=== PATIENT | male | born 1930 | race Caucasian/White ===

== ENCOUNTER 2016-10-10 13:55 | Inpatient (IN) ==
--- NOTE | 2016-10-10 14:14 | EKG Report ---
Stationary ECG Study [facility] ER Test Date: 10/10/2016 2:01:17 PM Pat Name: JOSÉ MANUEL ROSS Department: Room: Gender: M [employer]: DANNY : 1930 Requested by: Ezra Aragon Order Number: [id number] Reading MD: ENEIDA AMAYA Intervals [place] Rate: 106 P: 44 KS: 163 QRS: 42 QRSD: 107 T: 123 QT: 323 QTc: 385 Interpretive Statements SINUS TACHYCARDIA WITH FREQUENT VENTRICULAR PREMATURE COMPLEXES IN A BIGEMINAL PATTERN POSSIBLE LEFT ATRIAL ENLARGEMENT MODERATE INTRAVENTRICULAR CONDUCTION DELAY INTERPRETATION BASED ON A DEFAULT AGE OF 40 YEARS Electronically Signed On 10-10-16 21:17:24 HUMAN PERFORMANCE TECHNOLOGIST by ENEIDA AMAYA [email or web address]
[2016-10-10] MEDS ORDERED: ENOXAPARIN 100 MG/ML SYRINGE SUBCUT STA (14:23)
[2016-10-10] MEDS ORDERED: NITROGLYCERIN 2% OINT 1 INCH/GM PACK TOP STA (14:23)
[2016-10-10] MEDS ORDERED: ONDANSETRON 4 MG/2 ML VIAL IV PRN (14:23)
[2016-10-10] MEDS ORDERED: NITROGLYCERIN 2% OINT 1 INCH/GM PACK TOP ONE (14:29)
[2016-10-10] MEDS ORDERED: ENOXAPARIN 120 MG/0.8 ML SYRINGE SUBCUT ONE (14:29)
[2016-10-10] MEDS ORDERED: ASPIRIN 325 MG TABLET ONE (14:30)
[2016-10-10] MEDS: ASPIRIN 325 MG TABLET PO STA ×2 (14:32→14:34)
--- NOTE | 2016-10-10 14:38 | Emergency Department Note ---
Fidencio Franz Gwan, am scribing for, and in the presence of, Ezra Verdin MD 14:15 . Velvet Franz James D, MD, personally performed the services described in this documentation, ascribed by Gayatri Nicolas in my presence, and it is both accurate and complete 436 . Arrival - Arrival Chief Complaint: Shortness of Breath Stated Complaint: Chest Pain ED Nursing Triage Note: Brought in by EMS c/o chest pain and SOB-onset 1200 today. Patient took NTG x's 3 without relief. EMS reports CP was relieved with oxygen. Denies CP at current. Mode of Arrival: Stretcher Limitations: No Limitations Source: Significant other, Old Records Reviewed, RN Notes Reviewed - History of Present Illness HPI Narrative: Pt is a 85 y/o male, brought in by EMS with a hx of NV and HTN, who presents to the ED with a c/o chest pain with an onset 1200 today. His associated sxs have been SOB and that his pain radiates to his back. Patient stated that he took 3 NTG with no relief. CP was relieved with oxygen en route by EMS. Pt has a hx of COPD. He noted that his PCP is Dr. Barkley and that he has a social hx of smokeless tobacco. No other problems/complaints reported in ED. Onset (ago): hour(s) Consistency: constant Severity: moderate Allergies/Adverse Reactions: Allergies Allergy/AdvReac Type Severity Reaction Status Date / Time codeine Allergy Unknown/Unable Verified 10/10/16 14:08 to obtain meperidine [From Demerol] Allergy Unknown/Unable Verified 10/10/16 14:08 to obtain Home Medications: Home Medications Medication Instructions Recorded Confirmed Type Albuterol Sulfate [Proair HFA] 2 puff INH Q4H PRN 10/10/16 10/10/16 History Aspirin EC Tab 325 mg PO DAILY 10/10/16 10/10/16 History Carvedilol [Coreg] 6.25 mg PO BID 10/10/16 10/10/16 History Cholecalciferol (Vitamin D3) 1,000 unit PO DAILY 10/10/16 10/10/16 History [Vitamin D3] Coenzyme Q10 100 mg PO DAILY 10/10/16 10/10/16 History Isosorbide Mononitrate [Isosorbide 60 mg PO QPM 10/10/16 10/10/16 History Mononitrate ER] Isosorbide Mononitrate [Isosorbide 120 mg PO QAM 10/10/16 10/10/16 History Mononitrate ER] Latanoprost [Latanoprost 0.005 % 1 drop BOTH EYES BEDTIME 10/10/16 10/10/16 History Oph Soln] Lisinopril 10 mg PO DAILY 10/10/16 10/10/16 History Multivitamin with Minerals 1 each PO DAILY 10/10/16 10/10/16 History [Multivitamins with Minerals] Nitroglycerin Sl Tab [Nitrostat] 0.4 mg SL Q5M PRN 10/10/16 10/10/16 History [place]-3S/Dha/Epa/Fish Oil [Fish 1 each PO DAILY 10/10/16 10/10/16 History Oil 1,200 mg Softgel] Pravastatin [Pravachol] 20 mg PO BEDTIME 10/10/16 10/10/16 History Apixaban [Eliquis] 5 mg PO BID #60 tablet 10/13/16 Rx Furosemide Tab [Lasix Tab] 10 mg PO DAILY #30 tablet 10/13/16 Rx NIFEdipine XL TAB [Procardia Xl] 30 mg PO BEDTIME #30 tablet 10/13/16 Rx Pantoprazole Tab [Protonix Tab] 40 mg PO DAILY #30 tablet 10/13/16 Rx Ranolazine [Ranexa] 500 mg PO BID #60 tablet 10/13/16 Rx Review of System - Review of System Respiratory: Present: as per HPI, other (shortness of breathe) Cardiovascular: Present: as per HPI, chest pain Medical,Surgical,& Family Hx - Medical History Cardio: History of: Hypertension, [place] Respiratory: History of: COPD - Surgical History Cardiac Surgeries: Sugical HX of: Cardiac Surgery (CABG) - Social History Smoking Status: Never smoker Frequency of Alcohol Use: None Type of Drug Use: None Exam Vital Signs: Vital Signs Temperature 97.7 F 10/13/16 11:42 Pulse Rate 63 10/13/16 11:42 Respiratory Rate 20 10/13/16 11:42 Blood Pressure 148/87 10/13/16 11:42 O2 Sat by Pulse Oximetry 94 L 10/13/16 11:42 GENERAL: This is a well-nourished well-developed white male, chronically ill- appearing in no apparent distress. VITAL SIGNS: Reviewed HEENT: Head is atraumatic and normocephalic. Pupils are equal round react to light. Extraocular movements are intact. Oropharynx is benign with moist mucous membranes. NECK: Neck is soft and supple without tenderness. There are no masses. There is no lymphadenopathy. LUNGS: Lungs are clear to auscultation. Chest rises symmetrically. There is no chest wall tenderness. CV: Heart is regular rate and rhythm without murmurs rubs or gallops. ABDOMEN: Abdomen is soft, nontender to palpation. There are no abdominal abnormal masses palpated. There is no organomegaly. Bowel sounds are present and active. SKIN: Skin is warm and dry. No rash. EXTREMITIES: Patient has full range of motion without tenderness. There is no pedal edema. NEUROLOGIC: Awake alert and oriented 4. Cranial nerves II through XII are intact. Motor is 5 over 5 in all extremities bilaterally. Deep tendon reflexes are 2+ and bilaterally equal. Course Course Narrative: Patient will be taken to the Podiatric Assistant for left heart cath by Dr. Zurita. Results - Labs CBC & BMP: 10/12/16 05:48 10/11/16 06:30 Lab Results: I have reviewed the patients labs Labs: Laboratory Tests 10/10/16 14:58 INR 1.0 Only lab from 10/10/2016 is to be considered for the purposes of this note. Lab from any other date has been placed here automatically by the electronic medical record. Laboratory Tests 10/10/16 10/10/16 10/10/16 14:58 14:58 14:58 WBC 10.3 Hgb 15.1 Hct 45.9 Plt Count 229 Sodium 144 Potassium 4.2 Chloride 106 Carbon Dioxide 29 BUN 11 Creatinine 1.00 Glucose 133 H Troponin I 0.517 H - EKG EKG results: interpreted by ERMD - Impressions EKG: Sinus tachycardia with a rate of 106, frequent PVCs, left atrial enlargement, right bundle branch block - Diagnostic Findings Procedure: Chest x-ray: image reviewed by me (Right pleural effusion, possible infiltrate.) Disposition Clinical Impression: Chest pain, Dyspnea, Non-ST elevation [place] (NSTEMI) Case discussed with: patient Disposition: Still a Patient Condition: Stable New Prescriptions: Rx's Medication Instructions Recorded Apixaban [Eliquis] 5 mg PO BID #60 tablet 10/13/16 Furosemide Tab [Lasix Tab] 10 mg PO DAILY #30 tablet 10/13/16 NIFEdipine XL TAB [Procardia Xl] 30 mg PO BEDTIME #30 tablet 10/13/16 Pantoprazole Tab [Protonix Tab] 40 mg PO DAILY #30 tablet 10/13/16 Ranolazine [Ranexa] 500 mg PO BID #60 tablet 10/13/16
--- NOTE | 2016-10-10 14:52 | XRay Report ---
XR chest 2V Indication: Chest pain Comparison: Chest x-ray dated September 25, 2014 Technique: Single frontal view of the chest Findings: Mild/moderate cardiomegaly status post sternotomy. Bilateral mid and lower lung atelectasis/consolidation which may reflect pulmonary edema or pneumonia. Small left and [id number] right pleural fluid. Osseous and surrounding soft tissue structures appear grossly unchanged. IMPRESSION: As above. PROCEDURE INTERPRETED AT [facility] DEPARTMENT OF RADIOLOGY Final Report Signed by: Dr Cricket Ochoa
[2016-10-10 15:49] LABS: PT Patient Result 10.7 SECS
[2016-10-10 16:05] LABS: Albumin 3.4 G/DL (3.4-5.0); Bilirubin,Total 0.5 MG/DL (0.2-1.0); Calcium 9.1 MG/DL (8.5-10.1); Osmolality,Calculated 286.8 MOS/KG (273-304); Potassium 4.2 MMOL/L (3.5-5.1); Total Protein 6.8 G/DL (6.4-8.3)
[2016-10-10 16:11] LABS: Basophils # 0.1 10*3/uL (0.0-0.2); Basophils % 0.6 % (0.0-0.8); Eosinophils # 0.1 10*3/uL (0.0-0.87); Eosinophils % 1.4 % (0.00-10.9); Hematocrit 45.9 VOL% (42.0-52.0); Hemoglobin 15.1 GM/DL (14.0-18.0); Immature Granulocytes % 0.6 %; Immature Granulocytes Absolute 0.06 #; Lymphocytes # 1.4 10*3/uL (1.4-4.0); Lymphocytes % 13.5 % (21.2-54.2); Mean Corpuscular HGB Conc 32.9 GM/DL (32-36); Mean Corpuscular Hemoglobin 29 PG (27-34); Mean Corpuscular Volume 87.6 FL (87-102); Monocytes # 0.6 10*3/uL (0.11-0.8); Monocytes % 5.6 % (1.7-12.7); Neutrophils # 8.1 10*3/uL (1.4-7.4); Neutrophils % 78.3 % (38.7-73.9); Platelet Count 229 10*3/uL (130-400); Red Blood Count 5.24 10*6/uL (3.8-5.5); Red Cell Distribution Width 13.4 % (9.3-17.3); White Blood Count 10.3 10*3/uL (4.5-13.71)
--- NOTE | 2016-10-10 16:29 | CT Report ---
CT chest w con Indication: Chest pain Comparison: None Technique: Multiple axial tomographic images of the chest were obtained after the administration of 80 cc Omnipaque 350 intravenous contrast. Findings: Borderline cardiomegaly status post CABG. Atherosclerotic calcifications noted within the great vessels and coronary arteries. Mild right posterior basilar atelectasis/consolidation. Moderate right and trace left pleural fluid. Small pleural fluid noted in the left major fissure superiorly. Mild lingular atelectasis/consolidation. Status post cholecystectomy. Partially visualized prominent right renal cyst. Granulomatous calcifications of the spleen and liver. Diffuse osteopenia. IMPRESSION: Borderline cardiomegaly status post CABG. Mild right posterior basilar and lingular atelectasis/consolidation. Moderate right and trace left pleural effusion. PROCEDURE INTERPRETED AT [facility] DEPARTMENT OF RADIOLOGY Final Report Signed by: Dr Cricket Ochoa
[2016-10-10] MEDS ORDERED: ACETAMINOPHEN 325 MG TABLET PO PRN (17:07)
[2016-10-10] MEDS ORDERED: MORPHINE 2 MG/1 ML SYRINGE IV PRN (17:07)
[2016-10-10] MEDS ORDERED: NITROGLYCERIN SL 0.4 MG TABLET SL PRN (17:09)
[2016-10-10] MEDS ORDERED: ALBUTEROL 2.5 MG/3 ML NEB RESP TX PRN ×2 (17:09→19:32)
--- NOTE | 2016-10-10 17:13 | Hospitalist History & Physical ---
Assessment and Plan - Time spent with patient Time spent with patient: Greater than 30 minutes (1) Non-ST elevation [place] (NSTEMI) Status: Acute Current Visit: Yes (2) Hypertension Status: Acute Current Visit: Yes (3) Dyslipidemia Status: Acute Current Visit: Yes History of Present Illness Chief complaint: chest pain History of present illness: Mr. Harrell is a 85 year old male This is an 85-year-old white male with history of coronary artery disease status post bypass surgery 1994. Since then he's had angina which has been treated with nitroglycerin and his lead athlete Dr. Barkley has adjusted his medications. He is on beta blockers aspirin and long-acting nitrates along with seema inhibitors. He normally would get chest pain and shortness of breath after walking 20 steps but on this occasion he was sitting in bed when he started having left arm numbness and subsequent chest achiness which lasted about an hour and a half. This improved and he got sublingual nitroglycerin by the EMT. He was brought to the ED. He's been pain-free and we'll consult it for possible chest pain. His troponin is elevated at 0.5. He's being admitted to telemetry with acute coronary syndrome/non-ST elevation [place]. He denies any weight loss or weight gain. He denies any blood in his stools. He takes an aspirin on a daily basis. 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 Currently is pain free and feels well. Cardiology has been consulted. He will be given Lovenox at 1 mg/kg every 12 hours. Aspirin and beta blockers and lisinopril and his pravastatin has been continued. He may require to change pravastatin to Crestor or Lipitor at medium intensity. We will defer this to cardiology. He may require repeat cardiac catheterization as well. Home Medications Medication Instructions Recorded Confirmed Type Albuterol Sulfate [Proair HFA] 2 puff INH Q4H PRN 10/10/16 10/10/16 History Aspirin EC Tab 325 mg PO DAILY 10/10/16 10/10/16 History Carvedilol [Coreg] 6.25 mg PO BID 10/10/16 10/10/16 History Cholecalciferol (Vitamin D3) 1,000 unit PO DAILY 10/10/16 10/10/16 History [Vitamin D3] Coenzyme Q10 100 mg PO DAILY 10/10/16 10/10/16 History Isosorbide Mononitrate [Isosorbide 60 mg PO QPM 10/10/16 10/10/16 History Mononitrate ER] Isosorbide Mononitrate [Isosorbide 120 mg PO QAM 10/10/16 10/10/16 History Mononitrate ER] Latanoprost [Latanoprost 0.005 % 1 drop BOTH EYES BEDTIME 10/10/16 10/10/16 History Oph Soln] Lisinopril 10 mg PO DAILY 10/10/16 10/10/16 History Montelukast Tab [Singulair Tab] 10 mg PO BEDTIME 10/10/16 10/10/16 History Multivitamin with Minerals 1 each PO DAILY 10/10/16 10/10/16 History [Multivitamins with Minerals] Nitroglycerin Sl Tab [Nitrostat] 0.4 mg SL Q5M PRN 10/10/16 10/10/16 History [place]-3S/Dha/Epa/Fish Oil [Fish 1 each PO DAILY 10/10/16 10/10/16 History Oil 1,200 mg Softgel] Pravastatin [Pravachol] 20 mg PO BEDTIME 10/10/16 10/10/16 History Allergies Allergy/AdvReac Type Severity Reaction Status Date / Time codeine Allergy Unknown/Unable Verified 10/10/16 14:08 to obtain meperidine [From Demerol] Allergy Unknown/Unable Verified 10/10/16 14:08 to obtain Medical,Surgical,& Family Hx - Medical History Cardio: History of: Hypertension, [place] Respiratory: History of: COPD - Surgical History Cardiac Surgeries: Sugical HX of: Cardiac Surgery (CABG) - Social History Smoking Status: Never smoker Frequency of Alcohol Use: None Type of Drug Use: None Functional capacity: independent ambulation 12 point system: reviewed and no additional remarkable complaints except as stated Exam - Constitutional Vitals: Period Temp Pulse Resp BP Sys/Burton Pulse Ox Last 24 Hr 71 23 158/85 96 Exam: Gen.: In no acute distress Head and neck: Pupils are reactive neck is supple Cardiovascular: S1-S2 with regular rate and rhythm Respiratory: Lungs are clear to auscultation and percussion Abdomen: Soft, bowel sounds are positive Extremities: No edema Neuro: Grossly intact Results - Labs CBC & BMP: 10/10/16 14:58 10/10/16 14:58 Lab Results: I have reviewed the past 24 hour labs
[2016-10-10] MEDS ORDERED: MAGNESIUM SULF RIDER 2 GM in PREMIX 1 EACH IV PRN (21:30)
[2016-10-10] MEDS ORDERED: DIAZEPAM 5 MG TABLET PO ONE (21:30)
[2016-10-10] MEDS ORDERED: diphenhydrAMINE CAP 25 MG CAPSULE PO ONE (21:30)
[2016-10-10] MEDS ORDERED: POTASSIUM CHLORIDE RIDER 10 MEQ in PREMIX 1 EACH IV PRN (21:30)
--- NOTE | 2016-10-10 21:32 | Cardiology Consult Note ---
Assessment and Plan (1) Non-ST elevation [place] (NSTEMI) Status: Acute Assessment and plan: The patient had unstable angina/NST E [place]. His symptoms have resolved at this time. His second set of cardiac enzymes are mildly elevated with a troponin of 8.5. I had a long discussion with the patient about options for workup and management of his problem. I think he would be best served with cardiac catheterization. I discussed the risks, alternatives and potential benefits of catheterization and he understands and wishes to proceed. Were going to plan to do this in the morning at 930. Current Visit: Yes (2) COPD (chronic obstructive pulmonary disease) Status: Acute Current Visit: Yes (3) Dyslipidemia Status: Acute Current Visit: Yes (4) Hypertension Status: Acute Current Visit: Yes History of Present Illness - Consult Narrative History of present illness: Mr. Harrell is a 85 year old male including coronary artery disease, COPD, hypertension, and hyperlipidemia. He is normally followed by Dr. Barkley. Patient reports that he underwent I passed surgery in 1979 and again in 1994. He reports that for a long time he's had chronic stable angina, which would resolve with sublingual nitroglycerin or rest. However, today he developed unstable angina at rest, and it did not improve with nitroglycerin. Symptoms were moderate to severe. There were no associated symptoms such as diaphoresis or radiation. The symptoms lasted for one half hour or so until EMS treated the patient with oxygen and nitroglycerin. Since that time his chest pain symptom has resolved. He has chronic dyspnea on exertion and tells me he can only walk a few feet before he develops shortness of breath. He has a chronic dry cough which is not changed. He denies any fever or chills. He has no orthopnea, PND, or peripheral edema. He denies any palpitations or syncope. He denies any gastrointestinal complaints such as dysphagia or gastric blood loss. Home Medications Medication Instructions Recorded Confirmed Type Albuterol Sulfate [Proair HFA] 2 puff INH Q4H PRN 10/10/16 10/10/16 History Aspirin EC Tab 325 mg PO DAILY 10/10/16 10/10/16 History Carvedilol [Coreg] 6.25 mg PO BID 10/10/16 10/10/16 History Cholecalciferol (Vitamin D3) 1,000 unit PO DAILY 10/10/16 10/10/16 History [Vitamin D3] Coenzyme Q10 100 mg PO DAILY 10/10/16 10/10/16 History Isosorbide Mononitrate [Isosorbide 60 mg PO QPM 10/10/16 10/10/16 History Mononitrate ER] Isosorbide Mononitrate [Isosorbide 120 mg PO QAM 10/10/16 10/10/16 History Mononitrate ER] Latanoprost [Latanoprost 0.005 % 1 drop BOTH EYES BEDTIME 10/10/16 10/10/16 History Oph Soln] Lisinopril 10 mg PO DAILY 10/10/16 10/10/16 History Montelukast Tab [Singulair Tab] 10 mg PO BEDTIME 10/10/16 10/10/16 History Multivitamin with Minerals 1 each PO DAILY 10/10/16 10/10/16 History [Multivitamins with Minerals] Nitroglycerin Sl Tab [Nitrostat] 0.4 mg SL Q5M PRN 10/10/16 10/10/16 History [place]-3S/Dha/Epa/Fish Oil [Fish 1 each PO DAILY 10/10/16 10/10/16 History Oil 1,200 mg Softgel] Pravastatin [Pravachol] 20 mg PO BEDTIME 10/10/16 10/10/16 History CC: Tha Ramsey MD - Home Medications and Allergies Home Medications: Home Medications Medication Instructions Recorded Confirmed Type Albuterol Sulfate [Proair HFA] 2 puff INH Q4H PRN 10/10/16 10/10/16 History Aspirin EC Tab 325 mg PO DAILY 10/10/16 10/10/16 History Carvedilol [Coreg] 6.25 mg PO BID 10/10/16 10/10/16 History Cholecalciferol (Vitamin D3) 1,000 unit PO DAILY 10/10/16 10/10/16 History [Vitamin D3] Coenzyme Q10 100 mg PO DAILY 10/10/16 10/10/16 History Isosorbide Mononitrate [Isosorbide 60 mg PO QPM 10/10/16 10/10/16 History Mononitrate ER] Isosorbide Mononitrate [Isosorbide 120 mg PO QAM 10/10/16 10/10/16 History Mononitrate ER] Latanoprost [Latanoprost 0.005 % 1 drop BOTH EYES BEDTIME 10/10/16 10/10/16 History Oph Soln] Lisinopril 10 mg PO DAILY 10/10/16 10/10/16 History Montelukast Tab [Singulair Tab] 10 mg PO BEDTIME 10/10/16 10/10/16 History Multivitamin with Minerals 1 each PO DAILY 10/10/16 10/10/16 History [Multivitamins with Minerals] Nitroglycerin Sl Tab [Nitrostat] 0.4 mg SL Q5M PRN 10/10/16 10/10/16 History [place]-3S/Dha/Epa/Fish Oil [Fish 1 each PO DAILY 10/10/16 10/10/16 History Oil 1,200 mg Softgel] Pravastatin [Pravachol] 20 mg PO BEDTIME 10/10/16 10/10/16 History Allergies/Adverse Reactions: Allergies Allergy/AdvReac Type Severity Reaction Status Date / Time codeine Allergy Unknown/Unable Verified 10/10/16 14:08 to obtain meperidine [From Demerol] Allergy Unknown/Unable Verified 10/10/16 14:08 to obtain 12 point system: reviewed and no additional remarkable complaints except as stated Medical,Surgical,& Family Hx - Medical History Cardio: History of: Hypertension, [place] Respiratory: History of: COPD - Surgical History Cardiac Surgeries: Sugical HX of: Cardiac Surgery (CABG) - Social History Smoking Status: Never smoker Frequency of Alcohol Use: None Type of Drug Use: None Physical Examination Vital Signs Temp Pulse Resp BP Pulse Ox 98 F 54 L 26 H 184/105 99 10/10/16 13:55 10/10/16 13:55 10/10/16 13:55 10/10/16 13:55 10/10/16 13:55 Other: General: Frail, elderly chronically ill-appearing HEENT: Normocephalic, atraumatic Neck: Supple Neck, Midline Trachea Cardiac: Irregular Rhythm, No Murmur, no gallop, no rub Lungs: Coarse breath sounds with mild end expiratory wheeze, no rales or rhonchi Neuro: Cranial Nerve 2-12 Intact, diffuse generalized weakness Abdomen: Soft, Active Bowel Sounds, No Masses, No Pulsations/Bruits Skin: Normal color, no rash Extremities: No Clubbing, No Cyanosis, No Edema, Normal Upper Extr. Pulses Musculoskeletal: No acute abnormality noted Psychiatric: The patient is alert and oriented. The patient has a flat affect but does not appear to be anxious or depressed. Result/EKG - Labs CBC & BMP: 10/10/16 14:58 10/10/16 14:58 Lab Results: I have reviewed the past 24 hour labs Labs: Laboratory Results - last 24 hr 10/10/16 18:49 Troponin I 8.540 H D - EKG EKG results: interpreted by me
[2016-10-10] MEDS: LATANOPROST 0.005% OPH SOLN 2.5 ML BOTTLE BOTH EYES SCH (21:54)
[2016-10-10] MEDS: PRAVASTATIN 20 MG TABLET PO SCH (21:54)
[2016-10-10] MEDS: CARVEDILOL 6.25 MG TABLET PO SCH (21:54)
[2016-10-10] MEDS: MONTELUKAST 10 MG TABLET PO SCH (21:54)
[2016-10-10] MEDS: ISOSORBIDE MONONITRATE 60 MG TABLET PO SCH (21:54)
[2016-10-11] MEDS ORDERED: ENOXAPARIN 120 MG/0.8 ML SYRINGE SUBCUT SCH ×2 (02:00→09:00)
[2016-10-11 06:40] LABS: Basophils % 0.5 % (0.0-0.8); Eosinophils # 0.1 10*3/uL (0.0-0.87); Eosinophils % 1.5 % (0.00-10.9); Hemoglobin 13.9 GM/DL (14.0-18.0); Immature Granulocytes % 0.2 %; Immature Granulocytes Absolute 0.02 #; Lymphocytes # 1.3 10*3/uL (1.4-4.0); Lymphocytes % 14.7 % (21.2-54.2); Mean Corpuscular HGB Conc 32.3 GM/DL (32-36); Mean Corpuscular Hemoglobin 29 PG (27-34); Mean Corpuscular Volume 88.7 FL (87-102); Mean Platelet Volume 12.2 FL (9.6-12.0); Monocytes # 0.6 10*3/uL (0.11-0.8); Monocytes % 7.2 % (1.7-12.7); Neutrophils # 6.6 10*3/uL (1.4-7.4); Neutrophils % 75.9 % (38.7-73.9); Platelet Count 212 10*3/uL (130-400); Red Blood Count 4.85 10*6/uL (3.8-5.5); Red Cell Distribution Width 13.4 % (9.3-17.3); White Blood Count 8.7 10*3/uL (4.5-13.71)
[2016-10-11 07:20] LABS: Bilirubin,Total 1.2 MG/DL (0.2-1.0); CKMB % 7.4 %; Calcium 8.3 MG/DL (8.5-10.1); Osmolality,Calculated 288.7 MOS/KG (273-304); Potassium 4.1 MMOL/L (3.5-5.1); Risk Ratio 3.33; Total Protein 6.2 G/DL (6.4-8.3); VLDL CHOLESTEROL 18.2 MG/DL
[2016-10-11] MEDS: ASPIRIN EC 325 MG TABLET PO SCH ×2 (07:50→08:47)
[2016-10-11] MEDS: ISOSORBIDE MONONITRATE 60 MG TABLET PO SCH ×3 (07:51→19:29)
[2016-10-11] MEDS ORDERED: DIAZEPAM 5 MG TABLET ONE (07:52)
[2016-10-11] MEDS ORDERED: diphenhydrAMINE CAP 50 MG CAPSULE ONE (07:52)
[2016-10-11] MEDS: CARVEDILOL 6.25 MG TABLET PO SCH ×2 (09:38→22:39)
[2016-10-11] MEDS ORDERED: HEPARIN/NACL 0.9% 2 UNITS/ML 500 ML IV ONE ×3 (09:41→10:07)
[2016-10-11] MEDS ORDERED: LIDOCAINE 1% 20 ML VIAL ONE (09:41)
[2016-10-11] MEDS: LISINOPRIL 10 MG TABLET PO SCH (09:47)
[2016-10-11] MEDS: PANTOPRAZOLE 40 MG TABLET PO SCH ×2 (09:47→19:30)
[2016-10-11] MEDS ORDERED: MIDAZOLAM 2 MG/2 ML VIAL ONE (10:07)
[2016-10-11] MEDS ORDERED: HYDROmorphone 2 MG/1 ML VIAL ONE (10:07)
--- NOTE | 2016-10-11 10:46 | Hospitalist Progress Note ---
Assessment and Plan (1) Non-ST elevation [place] (NSTEMI) Status: Acute Current Visit: Yes (2) Hypertension Status: Acute Current Visit: Yes (3) Dyslipidemia Status: Acute Current Visit: Yes Hospitalist: Subjective Interval history: Patient is resting since he had some Valium. Currently no pain and he has not had chest pain since he came to the hospital. He did have non-ST elevation [place] as noted. He scheduled for cardiac catheterization this morning. Assessment and plan 10/28/2016: Non-ST elevation [place] Coronary artery disease Elevated blood sugar but no medications at home. Currently patient is on aspirin beta blockers and statins and full-strength Lovenox. He is to undergo cardiac catheterization. Further recommendations management per cardiology. Exam - Constitutional Vitals: Period Temp Pulse Resp BP Sys/Burton Pulse Ox Last 24 Hr 98.0 F-98.6 F 70-90 18-23 119-189/64-102 95-99 Exam: Gen.: In no acute distress Head and neck: Pupils are reactive neck is supple Cardiovascular: S1-S2 with regular rate and rhythm Respiratory: Lungs are clear to auscultation and percussion Abdomen: Soft, bowel sounds are positive Extremities: No edema Neuro: Grossly intact Results - Labs CBC & BMP: 10/11/16 06:30 10/11/16 06:30 Lab Results: I have reviewed the past 24 hour labs Specialty Discharge - Follow Up or Referrals
--- NOTE | 2016-10-11 11:01 | Cardiac Catheterization ---
Date of Procedure:: 10/11/16 Procedure: CLINICAL SUMMARY: The patient has known coronary artery disease with previous CABG and presented with an NSTEMI and is undergoing cardiac catheterization for definitive coronary artery assessment and possible revascularization. PROCEDURES PERFORMED: 1. Right femoral percutaneous arteriotomy 2. Left heart catheterization. 3. Resting hemodynamics. 4. Left ventriculography. 5. Coronary arteriography. 6. Right femoral arteriogram. 7. Angio-Seal closure of the right femoral artery. 8. Coronary artery bypass graft angiography. DESCRIPTION OF PROCEDURE: After obtaining informed consent, the patient was brought to the cardiac catheterization lab where the right groin was prepped and draped in the usual sterile manner. Using IV sedation, local anesthesia, and Modified Seldinger technique, a needle was placed in the right femoral artery and a sheath was positioned without difficulty. A left coronary catheter was advanced over a guidewire under fluoroscopic control to the ascending aorta where angiograms of the left coronary artery were undertaken in multiple views. After adequate angiograms, this catheter was withdrawn and a right coronary catheter was advanced over a guidewire under fluoroscopic control to the ascending aorta with angiograms of the RCA , as well as saphenous vein graft to the right coronary artery, saphenous vein graft to the obtuse marginal, and left internal mammary artery to left anterior descending bypass graft angiography were undertaken in numerous projections. After adequate angiograms, this catheter was removed and a pigtail ventriculographic catheter was advanced over a guidewire under fluoroscopic control to the aortic valve and left ventricular pressures were measured. After adequate pressures were measured, this catheter was used to perform left ventriculography in the GROSS projection. This catheter was then withdrawn under hemodynamic monitoring and removed from the patient. A right femoral arteriogram was performed showing adequate sheath placement for closure device deployment. The sheath was then removed and an Angio-Seal device was used to obtain hemostasis. The patient was transferred back to the room having suffered no immediate complications. HEMODYNAMICS: See the accompanying data sheet. CORONARY ARTERIOGRAPHY: LEFT MAIN: The left main coronary artery is a large caliber vessel, which trifurcates into the left anterior descending, ramus intermedius, and left circumflex coronary arteries. The left main coronary artery has what appears to be a large thrombus in its proximal to mid segment. LEFT CIRCUMFLEX: The left circumflex coronary artery is occluded at its origin. The distal vessel is seen filling via patent SVG. LEFT ANTERIOR DESCENDING: The left anterior descending artery is occluded just distal to the first diagonal branch. RIGHT CORONARY ARTERY: The right coronary artery is occluded proximally. There is faint distal filling via ipsilateral collaterals. SAPHENOUS VEIN GRAFT TO RIGHT CORONARY ARTERY: This graft is occluded at its origin. SAPHENOUS VEIN GRAFT to OBTUSE MARGINAL: This is a large caliber vein graft which is widely patent throughout its course. LEFT INTERNAL MAMMARY TO LEFT ANTERIOR DESCENDING: This is a moderate to large caliber bypass graft which is widely patent throughout its course. LEFT VENTRICULOGRAPHY: Shows a dilated ventricle with a severely reduced left ventricular ejection fraction estimated approximately 25-30%. PERIPHERAL ARTERIOGRAPHY: Right femoral arteriogram shows a normal right iliofemoral artery with adequate sheath placement for closure device deployment. IMPRESSIONS: 1. There is a hazy opacity which appears to be a large thrombus in the left main coronary artery. 2. Severe [place] three-vessel coronary artery disease with occlusion of all 3 major epicardial vessels. 3. 2 of 3 bypass grafts, the ZAPATA to LAD, and saphenous vein graft to obtuse marginal are widely patent. The third bypass graft, saphenous vein to the right coronary artery is occluded. 4. Severe ischemic cardiomyopathy as described above. 5. Normal right iliofemoral arterial system with successful and distal closure. PLAN: I don't think the patient has any good interventional options at this time. I considered attempting some sort of thrombectomy on the left main coronary artery, but, given the size of the thrombus and its proximity to the origin of the left main, I was worried that this will could lead to embolization of the thrombus distally. Ultimately I think the best course of action would be some sort of anticoagulation. I am uncertain whether dual antiplatelet therapy or full anticoagulation would be ideal. I discussed the case with a colleague, and I think right now it would be best to anticoagulate him with Eliquis. I would continue his aspirin as well. We might consider reevaluating his left main coronary artery and about 6 weeks. In addition, the patient would likely benefit from internal cardiac defibrillator in the future as well. Anesthesia: minimal conscious sedation Surgeon / Physician: Isiah Zurita Estimated blood loss: minimal Condition: stable Disposition: floor - Medications / Follow-up
--- NOTE | 2016-10-11 11:03 | Cardiology Progress Note ---
Assessment and Plan (1) Non-ST elevation [place] (NSTEMI) Status: Acute Assessment and plan: We took him to cardiac catheterization today which demonstrated what appears to be a large thrombus in his left main coronary artery. However all of his major epicardial vessels are occluded and are only filled filled via bypass grafts. His left internal mammary artery graft to the left anterior descending, and his saphenous vein graft to the obtuse marginal are patent. The right coronary artery and its bypass graft are occluded. I don't think he has any good interventional options. I considered attempting thrombectomy on the left main coronary artery, but given its proximity to the aortic root and size I think there is a high risk of embolization of this thrombus into the general circulation if I attempted to remove it. For now I think would be best to fully anticoagulate the patient. We might consider reevaluating his left main coronary artery in about 6 weeks. In addition he has a severe ischemic cardiomyopathy and likely benefit from internal cardiac defibrillator in the future as well. Current Visit: Yes (2) COPD (chronic obstructive pulmonary disease) Status: Acute Current Visit: Yes (3) Dyslipidemia Status: Acute Current Visit: Yes (4) Hypertension Status: Acute Current Visit: Yes (5) 3-vessel coronary artery disease Status: Acute Current Visit: Yes (6) Left main coronary artery thrombosis Status: Acute Current Visit: Yes Cardiology - PN: Subj Interval history: The patient remained hemodynamically stable overnight. He had no further cardiac symptoms. He actually is feeling a bit better. We took him to cardiac catheterization today which demonstrated what appears to be a large thrombus in his left main coronary artery. However all of his major epicardial vessels are occluded and are only filled filled via bypass grafts. His left internal mammary artery graft to the left anterior descending, and his saphenous vein graft to the obtuse marginal are patent. The right coronary artery and its bypass graft are occluded. I don't think he has any good interventional options. I considered attempting thrombectomy on the left main coronary artery , but given its proximity to the aortic root and size I think there is a high risk of embolization of this thrombus if I attempted to remove it. For now I think would be best to fully anticoagulate the patient. We might consider reevaluating his left main coronary artery in about 6 weeks. In addition he has a severe ischemic cardiomyopathy and likely benefit from internal cardiac defibrillator in the future as well. Current Medications Acetaminophen (Tylenol Tab) 325 mg PO Q4H PRN PRN Reason: fever, headache/body aches Albuterol Sulfate (Proventil Neb) 3 mg RESP TX RT Q4H PRN PRN Reason: Shortness of Breath/Wheezing Aspirin () 325 mg PO DAILY [facility] Last Admin: 10/11/16 08:47 Dose: Not Given Carvedilol (Coreg) 6.25 mg PO BID [facility] Last Admin: 10/11/16 09:38 Dose: Not Given Enoxaparin Sodium (Lovenox) 110 mg SUBCUT Q12H [facility] Stop: 10/14/16 08:59 Last Admin: 10/11/16 09:37 Dose: 110 mg Magnesium Sulfate 2 gm/ Premix 50 mls @ 25 mls/hr IV ONCE PRN PRN Reason: Magnesium less than 1.8 Potassium Chloride 10 meq/ (Premix) 100 mls @ 100 mls/hr IV Q1H PRN PRN Reason: Potassium less than 3.5 Isosorbide Mononitrate (Imdur) 60 mg PO QPM [facility] Last Admin: 10/11/16 07:51 Dose: 60 mg Isosorbide Mononitrate (Imdur) 120 mg PO QAM [facility] Last Admin: 10/11/16 09:35 Dose: 60 mg Latanoprost (Xalatan) 1 drop BOTH EYES BEDTIME [facility] Last Admin: 10/10/16 21:54 Dose: 1 drop Lisinopril (Prinivil) 10 mg PO DAILY [facility] Last Admin: 10/11/16 09:47 Dose: Not Given Montelukast Sodium (Singulair Tab) 10 mg PO BEDTIME [facility] Last Admin: 10/10/16 21:54 Dose: 10 mg Morphine Sulfate () 2 mg IV Q4H PRN PRN Reason: Pain Severe (8-10) Nifedipine (Procardia Xl) 30 mg PO BEDTIME [facility] Last Admin: 10/11/16 07:51 Dose: 30 mg Nitroglycerin (Nitrostat) 0.4 mg SL Q5M PRN PRN Reason: Chest Pain Ondansetron HCl (Zofran Inj) 4 mg IV 1X ED PRN PRN Reason: Nausea Last Admin: 10/10/16 14:32 Dose: 4 mg Pantoprazole Sodium (Protonix Tab) 40 mg PO DAILY [facility] Last Admin: 10/11/16 09:47 Dose: Not Given Pravastatin Sodium (Pravachol) 20 mg PO BEDTIME [facility] Last Admin: 10/10/16 21:54 Dose: 20 mg Exam (Progress Note) - Constitutional Vitals: Period Temp Pulse Resp BP Sys/Burton Pulse Ox Last 24 Hr 98.0 F-98.6 F 70-90 18-23 119-189/64-102 95-99 General appearance: over weight - Head Head exam: Present: normal inspection, normocephalic, atraumatic - Neck Neck exam: Present: normal inspection - Cardiovascular Cardiovascular exam: Present: regular rate and rhythm - Skin Skin exam: Present: normal color, warm, dry Result/EKG - Labs CBC & BMP: 10/11/16 06:30 10/11/16 06:30 Lab Results: I have reviewed the past 24 hour labs Labs: Laboratory Results - last 24 hr 10/10/16 10/11/16 10/11/16 18:49 06:30 06:30 WBC 8.7 RBC 4.85 Hgb 13.9 L Hct 43.0 MCV 88.7 MCH 29 MCHC 32.3 RDW 13.4 Plt Count 212 MPV 12.2 H Neut % (Auto) 75.9 H Lymph % (Auto) 14.7 L [place] % (Auto) 7.2 Eos % (Auto) 1.5 Baso % (Auto) 0.5 Neut # (Auto) 6.6 Lymph # (Auto) 1.3 L [place] # (Auto) 0.6 Eos # (Auto) 0.1 Baso # (Auto) 0.0 Immature Gran % 0.2 Nucleated RBC % 0.0 Immature Gran # 0.02 Nucleated RBCs # 0.00 Sodium 145 Potassium 4.1 Chloride 106 Carbon Dioxide 30 Anion Gap 13.1 BUN 9 Creatinine 0.90 GFR Calculation 104 BUN/Creatinine Ratio 10.00 Glucose 128 H Calculated Osmolality 288.7 Calcium 8.3 L Total Bilirubin 1.20 H AST 69 H ALT 23 Alkaline Phosphatase 62 Total Creatine Kinase CK-MB (CK-2) CK and CKMB Interp Troponin I 8.540 H D Total Protein 6.2 L Albumin 3.0 L Globulin 3.2 Albumin/Globulin Ratio 0.9 L Triglycerides 91 Cholesterol 130 LDL Cholesterol 80.0 VLDL Cholesterol 18.2 HDL Cholesterol 39 L Heart Disease Risk Ratio 3.33 10/11/16 06:30 WBC RBC Hgb Hct MCV MCH MCHC RDW Plt Count MPV Neut % (Auto) Lymph % (Auto) Hale % (Auto) Eos % (Auto) Baso % (Auto) Neut # (Auto) Lymph # (Auto) Hale # (Auto) Eos # (Auto) Baso # (Auto) Immature Gran % Nucleated RBC % Immature Gran # Nucleated RBCs # Sodium Potassium Chloride Carbon Dioxide Anion Gap BUN Creatinine GFR Calculation BUN/Creatinine Ratio Glucose Calculated Osmolality Calcium Total Bilirubin AST ALT Alkaline Phosphatase Total Creatine Kinase 259 CK-MB (CK-2) 19.2 H CK and CKMB Interp 7.4 Troponin I 11.000 H D Total Protein Albumin Globulin Albumin/Globulin Ratio Triglycerides Cholesterol LDL Cholesterol VLDL Cholesterol HDL Cholesterol Heart Disease Risk Ratio - EKG EKG results: interpreted by me Specialty Discharge - Follow Up or Referrals
[2016-10-11] MEDS: APIXABAN 5 MG TABLET PO SCH ×2 (13:11→22:38)
[2016-10-11] MEDS: PRAVASTATIN 20 MG TABLET PO SCH (22:38)
[2016-10-11] MEDS: MONTELUKAST 10 MG TABLET PO SCH (22:38)
[2016-10-11] MEDS: LATANOPROST 0.005% OPH SOLN 2.5 ML BOTTLE BOTH EYES SCH (22:39)
[2016-10-12 06:19] LABS: Basophils # 0.1 10*3/uL (0.0-0.2); Basophils % 0.5 % (0.0-0.8); Eosinophils # 0.2 10*3/uL (0.0-0.87); Eosinophils % 1.6 % (0.00-10.9); Hematocrit 42.4 VOL% (42.0-52.0); Hemoglobin 13.6 GM/DL (14.0-18.0); Immature Granulocytes % 0.5 %; Immature Granulocytes Absolute 0.05 #; Lymphocytes # 1.5 10*3/uL (1.4-4.0); Lymphocytes % 15.5 % (21.2-54.2); Mean Corpuscular HGB Conc 32.1 GM/DL (32-36); Mean Corpuscular Hemoglobin 29 PG (27-34); Mean Corpuscular Volume 90.2 FL (87-102); Mean Platelet Volume 12.7 FL (9.6-12.0); Monocytes # 0.8 10*3/uL (0.11-0.8); Monocytes % 8.6 % (1.7-12.7); Neutrophils # 6.8 10*3/uL (1.4-7.4); Neutrophils % 73.3 % (38.7-73.9); Platelet Count 197 10*3/uL (130-400); Red Cell Distribution Width 13.3 % (9.3-17.3); White Blood Count 9.3 10*3/uL (4.5-13.71)
--- NOTE | 2016-10-12 08:34 | EKG Report ---
Stationary ECG Study [facility] Test Date: 10/12/2016 8:32:07 AM Pat Name: JOSÉ MANUEL ROSS Department: Room: 217 Gender: M Donor Relations Coordinator: : 1930 Requested by: Hamilton Joyce Order Number: [id number] Reading MD: MARIAH FRANCO Intervals [place] Rate: 81 P: 18 [place]: 192 QRS: 15 QRSD: 133 T: 115 QT: 391 QTc: 429 Interpretive Statements SINUS RHYTHM Incomplete LBBB Electronically Signed On 10-12-16 17:55:06 [employer] by MARIAH FRANCO [email or web address]
--- NOTE | 2016-10-12 09:10 | Cardiology Progress Note ---
Assessment and Plan (1) Non-ST elevation [place] (NSTEMI) Status: Acute Assessment and plan: We took him to cardiac catheterization today which demonstrated what appears to be a large thrombus in his left main coronary artery. However all of his major epicardial vessels are occluded and are only filled filled via bypass grafts. His left internal mammary artery graft to the left anterior descending, and his saphenous vein graft to the obtuse marginal are patent. The right coronary artery and its bypass graft are occluded. I don't think he has any good interventional options. I considered attempting thrombectomy on the left main coronary artery, but given its proximity to the aortic root and size I think there is a high risk of embolization of this thrombus into the general circulation if I attempted to remove it. For now I think would be best to fully anticoagulate the patient. We might consider reevaluating his left main coronary artery in about 6 weeks. In addition he has a severe ischemic cardiomyopathy and likely benefit from internal cardiac defibrillator in the future as well. Clinically he is doing well. I would probably watch him one more day and he remained stable we could discharge him. Current Visit: Yes (2) COPD (chronic obstructive pulmonary disease) Status: Acute Current Visit: Yes (3) Dyslipidemia Status: Acute Current Visit: Yes (4) Hypertension Status: Acute Current Visit: Yes (5) 3-vessel coronary artery disease Status: Acute Current Visit: Yes (6) Left main coronary artery thrombosis Status: Acute Current Visit: Yes Cardiology - PN: Subj Interval history: The patient is feeling well today. He states that "that angina is gone". He has no problems or come pulsations from a cardiac catheterization. He had a large thrombus in his left main coronary artery, although his [place] coronary arteries were occluded. I started him on chronic anticoagulation. Clinically he seems to be doing better. I think I would probably watch him another day and he is doing well with the discharge him home. Current Medications Acetaminophen (Tylenol Tab) 325 mg PO Q4H PRN PRN Reason: fever, headache/body aches Albuterol Sulfate (Proventil Neb) 3 mg RESP TX RT Q4H PRN PRN Reason: Shortness of Breath/Wheezing Apixaban (Eliquis) 5 mg PO BID [facility] Last Admin: 10/11/16 22:38 Dose: 5 mg Aspirin () 325 mg PO DAILY [facility] Last Admin: 01/13/17 08:47 Dose: Not Given Carvedilol (Coreg) 6.25 mg PO BID [facility] Last Admin: 10/11/16 22:39 Dose: 6.25 mg Magnesium Sulfate 2 gm/ Premix 50 mls @ 25 mls/hr IV ONCE PRN PRN Reason: Magnesium less than 1.8 Potassium Chloride 10 meq/ (Premix) 100 mls @ 100 mls/hr IV Q1H PRN PRN Reason: Potassium less than 3.5 Isosorbide Mononitrate (Imdur) 60 mg PO QPM [facility] Last Admin: 10/11/16 19:29 Dose: 60 mg Isosorbide Mononitrate (Imdur) 120 mg PO QAM [facility] Last Admin: 10/11/16 09:35 Dose: 60 mg Latanoprost (Xalatan) 1 drop BOTH EYES BEDTIME [facility] Last Admin: 10/11/16 22:39 Dose: 1 drop Lisinopril (Prinivil) 10 mg PO DAILY [facility] Last Admin: 10/11/16 09:47 Dose: Not Given Montelukast Sodium (Singulair Tab) 10 mg PO BEDTIME [facility] Last Admin: 10/11/16 22:38 Dose: 10 mg Morphine Sulfate () 2 mg IV Q4H PRN PRN Reason: Pain Severe (8-10) Nifedipine (Procardia Xl) 30 mg PO BEDTIME [facility] Last Admin: 10/11/16 22:37 Dose: Not Given Nitroglycerin (Nitrostat) 0.4 mg SL Q5M PRN PRN Reason: Chest Pain Ondansetron HCl (Zofran Inj) 4 mg IV 1X ED PRN PRN Reason: Nausea Last Admin: 10/10/16 14:32 Dose: 4 mg Pantoprazole Sodium (Protonix Tab) 40 mg PO DAILY [facility] Last Admin: 10/11/16 19:30 Dose: 40 mg Pravastatin Sodium (Pravachol) 20 mg PO BEDTIME [facility] Last Admin: 10/11/16 22:38 Dose: 20 mg Exam (Progress Note) - Constitutional Vitals: Period Temp Pulse Resp BP Sys/Burton Pulse Ox Last 24 Hr 97.8 F-98.7 F 65-87 13-20 111-140/54-78 91-97 Exam: General: Frail, elderly in no acute distress HEENT: Normocephalic, atraumatic Neck: Supple Neck, Midline Trachea Cardiac: Irregular Rhythm, No Murmur, no gallop, no rub Lungs: Coarse breath sounds no wheeze, no rales or rhonchi Neuro: Cranial Nerve 2-12 Intact, grossly afocal Abdomen: Soft, obese, Active Bowel Sounds, No Masses, No Pulsations/Bruits Skin: Normal color, no rash Extremities: No Clubbing, No Cyanosis, No Edema, Normal Upper Extr. Pulses Musculoskeletal: No acute abnormality noted Psychiatric: The patient is alert and oriented. The patient does not appear to be anxious or depressed. Result/EKG - Labs CBC & BMP: 10/12/16 05:48 10/11/16 06:30 Lab Results: I have reviewed the past 24 hour labs Labs: Laboratory Results - last 24 hr 10/12/16 05:48 WBC 9.3 RBC 4.70 Hgb 13.6 L Hct 42.4 MCV 90.2 MCH 29 MCHC 32.1 RDW 13.3 Plt Count 197 MPV 12.7 H Neut % (Auto) 73.3 Lymph % (Auto) 15.5 L [place] % (Auto) 8.6 Eos % (Auto) 1.6 Baso % (Auto) 0.5 Neut # (Auto) 6.8 Lymph # (Auto) 1.5 [place] # (Auto) 0.8 Eos # (Auto) 0.2 Baso # (Auto) 0.1 Immature Gran % 0.5 Nucleated RBC % 0.0 Immature Gran # 0.05 Nucleated RBCs # 0.00 - EKG EKG results: interpreted by me Specialty Discharge - Follow Up or Referrals
[2016-10-12] MEDS: ISOSORBIDE MONONITRATE 60 MG TABLET PO SCH ×2 (09:48→18:11)
[2016-10-12] MEDS: APIXABAN 5 MG TABLET PO SCH ×2 (09:49→20:28)
[2016-10-12] MEDS: CARVEDILOL 6.25 MG TABLET PO SCH ×2 (09:49→20:28)
[2016-10-12] MEDS: ASPIRIN EC 325 MG TABLET PO SCH (09:49)
[2016-10-12] MEDS: LISINOPRIL 10 MG TABLET PO SCH (09:49)
[2016-10-12] MEDS: PANTOPRAZOLE 40 MG TABLET PO SCH (09:49)
--- NOTE | 2016-10-12 10:02 | Hospitalist Progress Note ---
Assessment and Plan (1) Non-ST elevation [place] (NSTEMI) Status: Acute Current Visit: Yes (2) Hypertension Status: Acute Current Visit: Yes (3) Dyslipidemia Status: Acute Current Visit: Yes Hospitalist: Subjective Interval history: Does not feel great according to the patient. He feels tired. Has some dyspnea on exertion.. Assessment and plan 10/12/2016: Non-ST elevation [place] Possible intracoronary thrombus Ischemic cardiomyopathy [id number] pleural effusion I would start him on low-dose Lasix by tomorrow. Still avoiding diuresis since he had a CT chest done in the emergency room and subsequently a cardiac catheterization and does cross he still. He is more than likely he'll require low-dose Lasix with his other heart medications. If in few months of his ejection fraction does not improve he may also require an AICD. He hoping to discharge him home tomorrow. He was placed on eliquis by cardiology. Exam - Constitutional Vitals: Period Temp Pulse Resp BP Sys/Burton Pulse Ox Last 24 Hr 97.8 F-98.7 F 65-87 13-20 111-140/54-78 91-97 Exam: Gen.: In no acute distress Head and neck: Pupils are reactive neck is supple Cardiovascular: S1-S2 with regular rate and rhythm Respiratory: Lungs are clear to auscultation and percussion Abdomen: Soft, bowel sounds are positive Extremities: No edema Neuro: Grossly intact Results - Labs CBC & BMP: 10/12/16 05:48 10/11/16 06:30 Lab Results: I have reviewed the past 24 hour labs Specialty Discharge - Follow Up or Referrals
[2016-10-12] MEDS: POLYETHYLENE GLYCOL POWDER 17 GM PACK PO SCH ×2 (10:37→10:40)
[2016-10-12] MEDS: PRAVASTATIN 20 MG TABLET PO SCH (20:28)
[2016-10-12] MEDS: MONTELUKAST 10 MG TABLET PO SCH (20:28)
[2016-10-12] MEDS: LATANOPROST 0.005% OPH SOLN 2.5 ML BOTTLE BOTH EYES SCH (20:29)
[2016-10-13] MEDS: POLYETHYLENE GLYCOL POWDER 17 GM PACK PO SCH (08:33)
[2016-10-13] MEDS: PANTOPRAZOLE 40 MG TABLET PO SCH (08:34)
[2016-10-13] MEDS: CARVEDILOL 6.25 MG TABLET PO SCH (08:34)
[2016-10-13] MEDS: ISOSORBIDE MONONITRATE 60 MG TABLET PO SCH (08:34)
[2016-10-13] MEDS: APIXABAN 5 MG TABLET PO SCH (08:34)
[2016-10-13] MEDS: ASPIRIN EC 325 MG TABLET PO SCH (08:34)
[2016-10-13] MEDS: LISINOPRIL 10 MG TABLET PO SCH (08:35)
--- NOTE | 2016-10-13 10:23 | Discharge Summary ---
Hospital Course - Hospital Course Hospital Course: This is a pleasant 85-year-old gentleman who presented with chest pain that was at rest. 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 He is normally followed by Dr. Barkley. He's had prior bypass surgery. His enzymes were elevated and he was admitted with the diagnoses of NSTEMI. He was placed on full-strength Lovenox. He underwent cardiac catheterization with the results noted as follows : MPRESSIONS: 1. There is a hazy opacity which appears to be a large thrombus in the left main coronary artery. 2. Severe samish three-vessel coronary artery disease with occlusion of all 3 major epicardial vessels. 3. 2 of 3 bypass grafts, the ZAPATA to LAD, and saphenous vein graft to obtuse marginal are widely patent. The third bypass graft, saphenous vein to the right coronary artery is occluded. 4. Severe ischemic cardiomyopathy as described above. 5. Normal right iliofemoral arterial system with successful and distal closure. Cardiology recommended medical management. There is also possibility that of his ejection fraction does not improve he will require an AICD. Due to the thrombus in the left main coronary artery is being placed on eliquis. I'm also adding Ranexa for angina in in conjunction with his isosorbide. Since he has depressed ejection fraction and some pleural effusion I think low-dose diuretics will be helpful. Overall he is pain-free and at this point it's felt that he can be discharged home. He may require a follow-up renal functions since he did have cardiac catheterization and recent CAT scan. I will start him on low-dose diuretic starting tomorrow at 10 mg a day. Patient will follow- up in [address] Zurita from a possible [facility] to evaluate the extent of resolution of thrombus and a repeat evaluation of his ejection fraction. Case discussed in detail with patient and his family members including the fact that he has been started on the blood thinner and that we are trying to add nifedipine and Ranexa for angina. - Time spent with patient Time with patient DS: Greater than 30 minutes Diagnosis - Discharge Diagnosis (1) Non-ST elevation CA (NSTEMI) Status: Acute (2) Hypertension Status: Acute (3) Dyslipidemia Status: Acute Specialty Discharge - Follow Up or Referrals Discharge Plan - Discharge Data Condition at Discharge: Stable - Discharge Medications New Apixaban [Eliquis] 5 mg PO BID #60 tablet Pantoprazole Tab [Protonix Tab] 40 mg PO DAILY #30 tablet NIFEdipine XL TAB [Procardia Xl] 30 mg PO BEDTIME #30 tablet Ranolazine [Ranexa] 500 mg PO BID #60 tablet Continue Pravastatin [Pravachol] 20 mg PO BEDTIME Coenzyme Q10 100 mg PO DAILY [place]-3S/Dha/Epa/Fish Oil [Fish Oil 1,200 mg Softgel] 1 each PO DAILY Carvedilol [Coreg] 6.25 mg PO BID Cholecalciferol (Vitamin D3) [Vitamin D3] 1,000 unit PO DAILY Albuterol Sulfate [Proair HFA] 2 puff INH Q4H PRN PRN Reason: Shortness Of Breath/Wheezing Multivitamin with Minerals [Multivitamins with Minerals] 1 each PO DAILY Lisinopril 10 mg PO DAILY Isosorbide Mononitrate [Isosorbide Mononitrate ER] 60 mg PO QPM Isosorbide Mononitrate [Isosorbide Mononitrate ER] 120 mg PO QAM Latanoprost [Latanoprost 0.005 % Oph Soln] 1 drop BOTH EYES BEDTIME Aspirin EC Tab 325 mg PO DAILY Nitroglycerin Sl Tab [Nitrostat] 0.4 mg SL Q5M PRN PRN Reason: Chest Pain Discontinued Montelukast Tab [Singulair Tab] 10 mg PO BEDTIME - Follow Up or Referral Follow Up: Isiah Zurita MD [Physician] - 11/25/16 - Forms/Instructions Instructions: Myocardial Infarction (GEN), Left Heart Catheterization (DC), Heart Healthy Diet (GEN) Exam - Constitutional Vitals: Period Temp Pulse Resp BP Sys/Burton Pulse Ox Last 24 Hr 97.9 F-98.7 F 66-89 15-28 105-148/50-80 91-97 Discharge Results Procedures and tests throughout hospitalization: Pending Orders 10/11/16 09:43 CL heart Routine DS: Provider Date of admission: 10/10/16 16:20 Primary care physician: . No PCP Attending physician on admission: Tha Ramsey MD Consults: 10/10/16 17:10 Consult to Physician [CONS] Routine Comment: Consulting Provider: Isiah Zurita When should Consulting Provider be notified: In am Consult to Specialist Group: Cardiology When should Consulting Provider be notified: Now Person Notified: Yudith Date Notified: 10/10/16 Time Notified: 19:49 Consult Notification Comment: NStemi 10/10/16 17:15 Consult to Pharmacy [CONS] Routine Reason for Pharmacy Consult: Adjust Meds Renal Funct 10/11/16 06:33 Consult to Cardiac Rehabilitation [CONS] Routine Reason for Cardiac Rehabilitation: Other Discharging clinician: Tha Ramsey MD
--- NOTE | 2016-10-13 10:31 | Discharge Summary ---
Diagnosis - Discharge Diagnosis (1) Non-ST elevation IA (NSTEMI) Status: Acute (2) Hypertension Status: Acute (3) Dyslipidemia Status: Acute Specialty Discharge - Follow Up or Referrals Follow up with: Isiah Zurita MD [Physician] - 11/25/16 Discharge Plan - Discharge Medications New Apixaban [Eliquis] 5 mg PO BID #60 tablet Pantoprazole Tab [Protonix Tab] 40 mg PO DAILY #30 tablet NIFEdipine XL TAB [Procardia Xl] 30 mg PO BEDTIME #30 tablet Ranolazine [Ranexa] 500 mg PO BID #60 tablet Furosemide Tab [Lasix Tab] 10 mg PO DAILY #30 tablet Continue Pravastatin [Pravachol] 20 mg PO BEDTIME Coenzyme Q10 100 mg PO DAILY [place]-3S/Dha/Epa/Fish Oil [Fish Oil 1,200 mg Softgel] 1 each PO DAILY Carvedilol [Coreg] 6.25 mg PO BID Cholecalciferol (Vitamin D3) [Vitamin D3] 1,000 unit PO DAILY Albuterol Sulfate [Proair HFA] 2 puff INH Q4H PRN PRN Reason: Shortness Of Breath/Wheezing Multivitamin with Minerals [Multivitamins with Minerals] 1 each PO DAILY Lisinopril 10 mg PO DAILY Isosorbide Mononitrate [Isosorbide Mononitrate ER] 60 mg PO QPM Isosorbide Mononitrate [Isosorbide Mononitrate ER] 120 mg PO QAM Latanoprost [Latanoprost 0.005 % Oph Soln] 1 drop BOTH EYES BEDTIME Aspirin EC Tab 325 mg PO DAILY Nitroglycerin Sl Tab [Nitrostat] 0.4 mg SL Q5M PRN PRN Reason: Chest Pain Discontinued Montelukast Tab [Singulair Tab] 10 mg PO BEDTIME - Follow Up or Referral Follow Up: Isiah Zurita MD [Physician] - 11/25/16 md timothy [Other] - 1 Week (Follow-up after discharge due to an STEMI. Patient started on low-dose diuretic and eliquis will need electrolytes and hematocrit to be followed up) - Forms/Instructions Instructions: Myocardial Infarction (GEN), Left Heart Catheterization (DC), Heart Healthy Diet (GEN) Exam - Constitutional Vitals: Period Temp Pulse Resp BP Sys/Burton Pulse Ox Last 24 Hr 97.9 F-98.7 F 66-89 15-28 105-148/50-80 91-97 Discharge Results Procedures and tests throughout hospitalization: Pending Orders 10/11/16 09:43 CL heart Routine DS: Provider Date of admission: 10/10/16 16:20 Primary care physician: . No PCP Attending physician on admission: Tha Ramsey MD Consults: 10/10/16 17:10 Consult to Physician [CONS] Routine Comment: Consulting Provider: Isiah Zurita When should Consulting Provider be notified: In am Consult to Specialist Group: Cardiology When should Consulting Provider be notified: Now Person Notified: Yudith Date Notified: 10/10/16 Time Notified: 19:49 Consult Notification Comment: NStemi 10/10/16 17:15 Consult to Pharmacy [CONS] Routine Reason for Pharmacy Consult: Adjust Meds Renal Funct 10/11/16 06:33 Consult to Cardiac Rehabilitation [CONS] Routine Reason for Cardiac Rehabilitation: Other Discharging clinician: Tha Ramsey MD
[2016-10-13 11:44] VITALS: BP 148/87
--- NOTE | 2016-10-17 13:18 | Physician Query Form ---
CLICK EDIT DOCUMENT TO SELECT QUERY ANSWER --> OK --> SIGN Ashlyn Alves RN Clinical Psychological Operations W) [phone] (f) [phone] [email or web address]: Make your selection(s) from the choices in EACH section by typing an "x" and enter comments in the comment section. Please use your independent medical judgment in providing your response. This request does not imply that any particular answer is desired or expected. CLINICAL INDICATORS: (Providers should not edit this section) Pt. admitted with NSTEMI. Based on documentation of "acute Left main coronary artery thrombosis". Based on the above, could you clarify the appropriate diagnosis, if significant , that supports the above abnormalities and additional evaluation, monitoring, and/or treatment rendered: ( ) Pt. had NSTEMI due to thrombus ( ) Pt. had NSTEMI not due to thrombus ( ) Pt. had NSTEMI due to ( ) Other, please specify: (x ) Clinically unable to determine COMMENTS: Use of terms such as suspected, likely, or probable (associated with a specific diagnosis that is being evaluated, monitored, or treated as if it exists) are acceptable and can be restated in the discharge summary if not ruled out. MTDD
== END 2016-10-13 12:10 | disposition home or self-care (01) | DRG 282 ==
LOC: EDBD → EDUNIT# → N.ED 13:55 → N.EDINP 16:20 → N.2E 18:07
PROVIDERS: ADMIT Internal Medicine; ATTEND Internal Medicine

== ENCOUNTER 2017-03-06 21:25 | Inpatient (IN) ==
[2017-03-06] MEDS ORDERED: NITROGLYCERIN 2% OINT 1 INCH/GM PACK TOP STA (21:56)
--- NOTE | 2017-03-06 22:00 | Emergency Department Note ---
Arrival - Arrival Chief Complaint: Chest Pain Stated Complaint: chest pain ED Nursing Triage Note: patient to room via ems for c/o chest pain. Patient states that it was mid niddel line radating into his back and shoulders. Patient took two SL nirto and ASA 324mg before EMS arrived. EMS gave 1 nirto SL and now patient states that he has no pain. Mode of Arrival: Stretcher Limitations: No Limitations Source: Patient Time Seen by Provider: 03/06/17 21:55 - History of Present Illness HPI Narrative: This 86-year-old white male with a history of coronary artery disease with bypass graft presents with retrosternal chest pain of abrupt onset 2 hours ago associated with radiation into both shoulders. The patient denies shortness of breath, diaphoresis, nausea, or vomiting associated with this. The patient states that he took nitroglycerin for the problem initially but it only made the pain worse and the pain did not resolve until he took 2 aspirin. At this point in time he is without pain and in no acute distress. Onset (ago): hour(s) (Patient presents 2 hours post onset of symptom) Allergies/Adverse Reactions: Allergies Allergy/AdvReac Type Severity Reaction Status Date / Time codeine Allergy Unknown/Unable Verified 03/06/17 21:34 to obtain meperidine [From Demerol] Allergy Unknown/Unable Verified 03/06/17 21:34 to obtain Home Medications: Home Medications Medication Instructions Recorded Confirmed Type Albuterol Sulfate [Proair HFA] 2 puff INH Q4H PRN 03/06/17 03/06/17 History Aspirin 325 mg PO DAILY 03/06/17 03/06/17 History Carvedilol [Coreg] 6.25 mg PO BID 03/06/17 03/06/17 History Cholecalciferol (Vitamin D3) 1,000 unit PO DAILY 03/06/17 03/06/17 History [Vitamin D3] Furosemide Tab [Lasix Tab] 20 mg PO DAILY 03/06/17 03/06/17 History Gabapentin 600 mg PO BEDTIME 03/06/17 03/06/17 History Isosorbide Mononitrate [Isosorbide 60 mg PO QID 03/06/17 03/06/17 History Mononitrate ER] [place]/Om-3/Dha/Epa/Phospho/Ast 1 each PO DAILY 03/06/17 03/06/17 History [[place]-3 Krill Oil 300 mg Sfgl] Latanoprost [Latanoprost 0.005 % 1 drop BOTH EYES BEDTIME 03/06/17 03/06/17 History Oph Soln] Lisinopril 10 mg PO DAILY 03/06/17 03/06/17 History Montelukast Tab [Singulair Tab] 10 mg PO DAILY 03/06/17 03/06/17 History Multivitamin with Minerals 1 each PO DAILY 03/06/17 03/06/17 History [Multivitamins with Minerals] NIFEdipine [Nifedipine ER] 30 mg PO DAILY 03/06/17 03/06/17 History Nitroglycerin Sl Tab [Nitrostat] 0.4 mg SL Q5M PRN 03/06/17 03/06/17 History [place]-3/Dha/Epa/Fish Oil [Fish Oil 1 each PO DAILY 03/06/17 03/06/17 History 1,000 mg Softgel] Pravastatin Sodium 20 mg PO DAILY 03/06/17 03/06/17 History Ubidecarenone/Vit E Acet [Co Q-10 1 each PO DAILY 03/06/17 03/06/17 History 100 mg Softgel] Review of System - Review of System 12 point system: reviewed and no additional remarkable complaints except as stated - Review of System Constitutional: Present: as per HPI Respiratory: Present: as per HPI Cardiovascular: Present: as per HPI Gastrointestinal: Present: as per HPI Medical,Surgical,& Family Hx - Medical History Cardio: History of: Hypertension, [place] HEENT: History of: Glaucoma Respiratory: History of: Asthma, COPD - Surgical History Cardiac Surgeries: Sugical HX of: Cardiac Surgery (CABG) - Social History Smoking Status: Never smoker Frequency of Alcohol Use: None Type of Drug Use: None Exam Physical Examination: GENERAL: Obese elderly white male in no acute distress. HEENT: Normocephalic. No trauma. Moist mucous membranes. EOMI. PERRLA. ENT NML NECK: Supple. No adenopathy. CARDIAC: Regular. No murmurs. Heart rate 86 CHEST: Clear to auscultation. No respiratory distress. O2 sat 90% ABDOMEN: Soft. Nontender. Active bowel sounds. EXTREMITIES: No trauma. Normal ROM. No pedal edema. SKIN: No diaphoresis. No rash. NEURO: Alert. Neuro intact. No focal deficits. Vital Signs: Vital Signs Temperature 96.7 F L 03/06/17 21:26 Pulse Rate 66 03/06/17 21:26 Respiratory Rate 20 03/06/17 21:41 Blood Pressure 140/54 03/06/17 21:26 O2 Sat by Pulse Oximetry 98 03/06/17 21:26 Course - Reevaluation(s) Reevaluation #1: Discussed with patient the fact that he had borderline troponins and evidence of congestive failure that hospitalization was indicated. - Consultations Consultation #1: Discussed with the hospitalist service who will admit for further evaluation treatment. Results - Labs CBC & BMP: 03/06/17 21:36 03/06/17 21:36 Labs: I reviewed the lab and noted the borderline troponin - Impressions EKG: Sinus rhythm at 69 with rare PVC with normal [place] interval but intraventricular conduction delay. Nonspecific ST changes. No acute injury pattern noted. - Diagnostic Findings Procedure: Chest x-ray: image reviewed by me, report reviewed by me (Status post median sternotomy with bilateral pleural effusions and evidence of congestive failure) Disposition Clinical Impression: Angina, Congestive heart failure Case discussed with: patient, patient's family Disposition: Still a Patient Time of Disposition: 23:16
[2017-03-06] MEDS ORDERED: NITROGLYCERIN 2% OINT 1 INCH/GM PACK TOP ONE (22:10)
[2017-03-06] MEDS ORDERED: ONDANSETRON 4 MG/2 ML VIAL ONE (22:10)
[2017-03-06] MEDS: ONDANSETRON 4 MG/2 ML VIAL IV STA ×2 (22:10→22:12)
[2017-03-06 22:16] LABS: Basophils # 0.1 10*3/uL (0.0-0.2); Basophils % 0.7 % (0.0-0.8); Eosinophils # 0.3 10*3/uL (0.0-0.87); Eosinophils % 3.7 % (0.00-10.9); Hematocrit 43.9 VOL% (42.0-52.0); Hemoglobin 14.8 GM/DL (14.0-18.0); Immature Granulocytes % 0.4 %; Immature Granulocytes Absolute 0.04 #; Lymphocytes # 1.8 10*3/uL (1.4-4.0); Lymphocytes % 19.8 % (21.2-54.2); Mean Corpuscular HGB Conc 33.7 GM/DL (32-36); Mean Corpuscular Hemoglobin 30 PG (27-34); Mean Corpuscular Volume 87.6 FL (87-102); Monocytes # 0.8 10*3/uL (0.11-0.8); Monocytes % 8.4 % (1.7-12.7); Neutrophils # 6.1 10*3/uL (1.4-7.4); Platelet Count 188 T/CUMM (130-400); Red Blood Count 5.01 MC/CUMM (3.8-5.5); Red Cell Distribution Width 13.1 % (9.3-17.3)
--- NOTE | 2017-03-06 22:17 | XRay Report ---
Portable chest. Indication: Chest pain. Comparison: October 10, 2016. The cardiac silhouette is enlarged. Post median sternotomy. The pulmonary vasculature is prominent. Bilateral pleural effusions are present. Impression: Findings suggestive of congestive heart failure. PROCEDURE INTERPRETED AT [facility] Final Report Signed by: Dr. Ella Alvarez
[2017-03-06 22:24] LABS: Partial Thromboplastin Time 27.5 SECS (0-40)
[2017-03-06 22:37] LABS: Alanine Aminotransferase 26 U/L (16-61); Albumin 3.4 G/DL (3.4-5.0); Alkaline Phosphatase 72 U/L (45-117); Aspartate Amino Transferase 15 U/L (0-37); Blood Urea Nitrogen 10 MG/DL (7-18); Calcium 8.7 MG/DL (8.5-10.1); Glucose 170 MG/DL (74-106); Sodium 143 MMOL/L (136-145); Total Protein 6.8 G/DL (6.4-8.3); Troponin I Only 0.044 NG/ML (0.00-0.045)
[2017-03-06] MEDS ORDERED: ALBUTEROL/IPRATROPIUM 3 ML NEB RESP TX STA (23:05)
[2017-03-06] MEDS ORDERED: FUROSEMIDE 40 MG/4 ML VIAL IV STA (23:05)
[2017-03-06] MEDS ORDERED: FUROSEMIDE 100 MG/10 ML VIAL ONE (23:16)
[2017-03-07] MEDS ORDERED: ONDANSETRON 4 MG/2 ML VIAL IV PRN (00:14)
[2017-03-07] MEDS ORDERED: ALBUTEROL 2.5 MG/3 ML NEB RESP TX PRN (00:16)
--- NOTE | 2017-03-07 00:23 | Hospitalist History & Physical ---
Assessment and Plan (1) Chest pain Status: Acute Current Visit: No (2) Dyslipidemia Status: Acute Current Visit: No (3) Dyspnea Status: Acute Current Visit: No (4) Hypertension Status: Acute Assessment and plan: We will admit patient our service. We will draw serial cardiac enzymes and consult cardiology. Continue home meds as appropriate. Will need to obtain records from [place] he had an echo performed at [place] and was told that he had 10- 15% of his heart working. Patient's glucose is elevated on her chemistry today will check an A1c and follow Accu-Cheks. Current Visit: No History of Present Illness Chief complaint: Chest pain History of present illness: Mr. Harrell is a 86 year old male with past medical history significant for congestive heart failure and coronary artery disease who comes to our hospital [facility] with chief complaint chest pain. Patient and his reports that it times his chest pain will come and go. It usually will resolve with sublingual nitro. Tonight the chest pain came own. He was radiating across his chest and his arms. He took 2 nitros without good results. He ultimately called EMS is brought up to our hospital for further evaluation. Patient does have some exertional component at time with the chest pain but denies nausea denies shortness of breath. I was consulted to admit the patient. Home Medications Medication Instructions Recorded Confirmed Type Albuterol Sulfate [Proair HFA] 2 puff INH Q4H PRN 03/06/17 03/06/17 History Aspirin 325 mg PO DAILY 03/06/17 03/06/17 History Carvedilol [Coreg] 6.25 mg PO BID 03/06/17 03/06/17 History Cholecalciferol (Vitamin D3) 1,000 unit PO DAILY 03/06/17 03/06/17 History [Vitamin D3] Furosemide Tab [Lasix Tab] 20 mg PO DAILY 03/06/17 03/06/17 History Gabapentin 600 mg PO BEDTIME 03/06/17 03/06/17 History Isosorbide Mononitrate [Isosorbide 60 mg PO QID 03/06/17 03/06/17 History Mononitrate ER] [place]/Om-3/Dha/Epa/Phospho/Ast 1 each PO DAILY 03/06/17 03/06/17 History [[place]-3 Krill Oil 300 mg Sfgl] Latanoprost [Latanoprost 0.005 % 1 drop BOTH EYES BEDTIME 03/06/17 03/06/17 History Oph Soln] Lisinopril 10 mg PO DAILY 03/06/17 03/06/17 History Montelukast Tab [Singulair Tab] 10 mg PO DAILY 03/06/17 03/06/17 History Multivitamin with Minerals 1 each PO DAILY 03/06/17 03/06/17 History [Multivitamins with Minerals] NIFEdipine [Nifedipine ER] 30 mg PO DAILY 03/06/17 03/06/17 History Nitroglycerin Sl Tab [Nitrostat] 0.4 mg SL Q5M PRN 03/06/17 03/06/17 History [place]-3/Dha/Epa/Fish Oil [Fish Oil 1 each PO DAILY 03/06/17 03/06/17 History 1,000 mg Softgel] Pravastatin Sodium 20 mg PO DAILY 03/06/17 03/06/17 History Ubidecarenone/Vit E Acet [Co Q-10 1 each PO DAILY 03/06/17 03/06/17 History 100 mg Softgel] Allergies Allergy/AdvReac Type Severity Reaction Status Date / Time codeine Allergy Unknown/Unable Verified 03/06/17 21:34 to obtain meperidine [From Demerol] Allergy Unknown/Unable Verified 03/06/17 21:34 to obtain Medical,Surgical,& Family Hx - Medical History Cardio: History of: Hypertension, [place] HEENT: History of: Glaucoma Respiratory: History of: Asthma, COPD - Surgical History Cardiac Surgeries: Sugical HX of: Cardiac Surgery (CABG) - Family History Additional Family History: Coronary artery disease, cancer, Alzheimer disease - Social History Smoking Status: Never smoker Frequency of Alcohol Use: None Type of Drug Use: None 12 point system: reviewed and no additional remarkable complaints except as stated Exam - Constitutional Vitals: Period Temp Pulse Resp BP Sys/Burton Pulse Ox Last 24 Hr 96.7 F-96.7 F 57-68 15-22 128-140/54-69 98-100 General appearance: over weight - Head Head exam: Present: normal inspection - Eye Eye exam: Present: EOMI Pupils: Present: SARBJIT - ENT ENT exam: Present: normal exam - Neck Neck exam: Present: normal inspection - Respiratory Respiratory exam: Present: clear to auscultation bilaterally - Cardiovascular Cardiovascular exam: Present: regular rate and rhythm - GI/Abdominal GI/Abdominal exam: Present: normal bowel sounds - Extremities Exam Extremities exam: Present: normal inspection - Back Exam Back exam: Present: normal inspection - Neurological Exam Neurological exam: Present: alert, oriented X3 - Psychiatric Psychiatric exam: Present: normal affect, normal mood Results - Labs CBC & BMP: 03/06/17 21:36 03/06/17 21:36
[2017-03-07 01:26] LABS: Risk Ratio 3.78; VLDL CHOLESTEROL 17.6 MG/DL
--- NOTE | 2017-03-07 06:11 | EKG Report ---
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
--- NOTE | 2017-03-07 06:46 | EKG Report ---
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
[2017-03-07] MEDS: NITROGLYCERIN 2% OINT 1 INCH/GM PACK TOP SCH ×3 (06:51→17:58)
--- NOTE | 2017-03-07 08:04 | EKG Report ---
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
[2017-03-07] MEDS: COENZYME Q10 100 MG CAPSULE PO SCH (08:08)
[2017-03-07] MEDS: CHOLECALCIFEROL 1,000 UNIT TABLET PO SCH ×2 (08:08→09:23)
[2017-03-07] MEDS: ENOXAPARIN 40 MG/0.4 ML SYRINGE SUBCUT SCH (08:08)
[2017-03-07] MEDS: ISOSORBIDE MONONITRATE 60 MG TABLET PO SCH ×4 (08:08→21:53)
[2017-03-07] MEDS: ASPIRIN EC 325 MG TABLET PO SCH (08:08)
[2017-03-07] MEDS: MULTIVITAMIN (CENTRUM) TABLET PO SCH (08:08)
[2017-03-07] MEDS: PRAVASTATIN 20 MG TABLET PO SCH ×2 (08:09→09:23)
[2017-03-07] MEDS: FUROSEMIDE 20 MG TABLET PO SCH (08:09)
[2017-03-07] MEDS: MONTELUKAST 10 MG TABLET PO SCH ×2 (08:09→09:23)
[2017-03-07] MEDS: OMEGA 3 ACID ETHYL ESTERS 1 GM CAPSULE PO SCH ×2 (08:09→09:23)
[2017-03-07] MEDS: LISINOPRIL 10 MG TABLET PO SCH ×2 (08:09→09:23)
[2017-03-07] MEDS: CARVEDILOL 6.25 MG TABLET PO SCH ×2 (08:09→21:54)
[2017-03-07] MEDS ORDERED: NON-FORMULARY MEDICATION (Omega-3/Dha/Epa/Fish Oil [Fish Oil 1,000 Mg Softgel] 1 EACH) PO SCH (09:00)
--- NOTE | 2017-03-07 10:01 | Cardiology Consult Note ---
Assessment and Plan - Time spent with patient Time spent with patient: Greater than 30 minutes (due to assessment, plan, and documentation) (1) Atypical chest pain Status: Acute Current Visit: Yes (2) 3-vessel coronary artery disease Status: Chronic Current Visit: No (3) Hypertension Status: Chronic Current Visit: No (4) Dyslipidemia Status: Chronic Current Visit: No (5) COPD (chronic obstructive pulmonary disease) Status: Chronic Current Visit: No (6) Dysphagia Status: Acute Current Visit: Yes (7) Near syncope Status: Acute Current Visit: Yes History of Present Illness - Data of Consult Patient: known to practice within the last 3 years Consult date: 03/07/17 Requesting Physician: Carlos Zavala Primary care physician: John Barkley - Consult Narrative Reason for consult: CP History of present illness: 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 Zurita but did not follow up PCP: Dr. Barkley Mr. Harrell is a 86 year old male with history of coronary artery disease, COPD, hypertension, and hyperlipidemia. He is normally followed by Dr. Barkley. He is status post coronary artery bypass graft surgery in 1979 with repeat surgery in 1994. He reports that for a long time he's had chronic stable angina, which would resolve with sublingual nitroglycerin or rest. He is status post non-ST elevation myocardial infarction on October 10, 2016. He underwent left heart catheterization and was found to have severe triple-vessel coronary artery disease with occlusion of all 3 major epicardial vessels, vein graft to obtuse marginal widely patent, ZAPATA to LAD widely patent, and vein graft to the RCA occluded. He was noted to have severe ischemic cardiomyopathy with ejection fraction 25-30%. 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 He was started on chronic anticoagulation with Eliquis which he reports he couldn't afford and was told by his PCP that "he didn't need to be on that medicine." I was called to Mr. Harrell's bedside around 0900 this morning after the nurses were notified that the patient's heart rate was in the 30's. His blood pressure would not register on the automated cuff. Manually, he had a systolic BP in the 70s. He was lethargic, clammy, and had an episode of incontinence. His reports he did not seem to lose consciousness, but wouldn't reply to her and seemed "out of it." An EKG was obtained which was grossly unchanged from previous. Glucose was around 130 this morning. The patient slowly became more alert. His heart rate returned to the 50s-60s and we were able to obtain a blood pressure of 95/55. Mr. Harrell became more alert and was neurologically intact. He tells me that he has similar episodes since he was in his 20s-30s. He was initially admitted with chest pain and we were consulted to see him. He has had some mildly elevated troponins. He tells me his pain stretches from his right chest to his left chest and he states it feels like "something is hung" in the center of his chest. He also reports epigastric pain and tenderness. He has also had pain across his upper back. He denies associated nausea, vomiting, shortness of breath, or diaphoresis. He reports this does not feel like the pain he had prior to his bypass surgeries. He has some chronic angina which is relieved with nitroglycerin but reports last night he took 2 sublingual nitroglycerin tabs without relief. His pain is nonreproducible to palpation, he has no chest wall tenderness. He does report a myriad of other complaints such as pain and numbness in his legs and rectum, which he believes is from his heart cath in September 2016, and dysphagia. ASSESSMENT/PLAN: 1. ATYPICAL CHEST PAIN - Patient's symptoms do not sound typical of angina. He has a chronic incomplete left bundle branch block. We will continue current medical therapy and await further recommendations from Dr. Davis. 2. CORONARY ARTERY DISEASE - He is status post non-ST elevation myocardial infarction on October 10, 2016. He underwent left heart catheterization and was found to have severe triple-vessel coronary artery disease with occlusion of all 3 major epicardial vessels, vein graft to obtuse marginal widely patent, ZAPATA to LAD widely patent, and vein graft to the RCA occluded. He was noted to have severe ischemic cardiomyopathy with ejection fraction 25-30%. 3. HYPERTENSION - Currently well controlled. Will continue to monitor and adjust accordingly. 4. HYPERLIPIDEMIA - Continue Pravachol. 5. COPD - O2 PRN, will defer further evaluation and management to hospital medicine. 6. DYSPHAGIA - We will ask GI to see him for his dysphagia and atypical CP. 7. VASOVAGAL EPISODE VS. NEAR SYNCOPE VS. SEIZURE - Patient's episode this morning is consistent with a vasovagal episode; however, he had urinary incontinence. We would ask Neurology to evaluate but the patient and his report they do not want to see a neurologist. 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 CC: Cholo Quijano MD - Home Medications and Allergies Home Medications: Home Medications Medication Instructions Recorded Confirmed Type Albuterol Sulfate [Proair HFA] 2 puff INH Q4H PRN 03/06/17 03/06/17 History Aspirin 325 mg PO DAILY 03/06/17 03/06/17 History Carvedilol [Coreg] 6.25 mg PO BID 03/06/17 03/06/17 History Cholecalciferol (Vitamin D3) 1,000 unit PO BEDTIME 03/06/17 03/07/17 History [Vitamin D3] Furosemide Tab [Lasix Tab] 20 mg PO DAILY 03/06/17 03/06/17 History Gabapentin 300 mg PO BID 03/06/17 03/07/17 History Isosorbide Mononitrate [Isosorbide 60 mg PO QID 03/06/17 03/06/17 History Mononitrate ER] Krill/Om-3/Dha/Epa/Phospho/Ast 1 each PO DAILY 03/06/17 03/06/17 History [[place]-3 Krill Oil 300 mg Sfgl] Latanoprost [Latanoprost 0.005 % 1 drop BOTH EYES BEDTIME 03/06/17 03/06/17 History Oph Soln] Lisinopril 10 mg PO BEDTIME 03/06/17 03/07/17 History Montelukast Tab [Singulair Tab] 10 mg PO BEDTIME 03/06/17 03/07/17 History Multivitamin with Minerals 1 each PO DAILY 03/06/17 03/06/17 History [Multivitamins with Minerals] NIFEdipine [Nifedipine ER] 30 mg PO BEDTIME 03/06/17 03/07/17 History Nitroglycerin Sl Tab [Nitrostat] 0.4 mg SL Q5M PRN 03/06/17 03/06/17 History [place]-3/Dha/Epa/Fish Oil [Fish Oil 1 each PO BEDTIME 03/06/17 03/07/17 History 1,000 mg Softgel] Pravastatin Sodium 20 mg PO BEDTIME 03/06/17 03/07/17 History Ubidecarenone/Vit E Acet [Co Q-10 1 each PO DAILY 03/06/17 03/06/17 History 100 mg Softgel] Allergies/Adverse Reactions: Allergies Allergy/AdvReac Type Severity Reaction Status Date / Time codeine Allergy Unknown/Unable Verified 03/06/17 21:34 to obtain meperidine [From Demerol] Allergy Unknown/Unable Verified 03/06/17 21:34 to obtain Review of systems: - Constitutional: Present: weakness, lethargy, As per HPI. Absent: anorexia, chills, daytime sleepiness, excessive sweating, fever(s), frequent falls, headache(s), increased appetite, malaise, night sweats, stops breathing during sleep, weight gain, weight loss, fatigue. - EENT Eyes: Present: As per HPI. Absent: blurry vision, diplopia, loss of vision Ears: Present: As per HPI. Absent: decreased hearing, ear discharge, ear pain Nose, mouth and throat: Present: dysphagia, As per HPI. Absent: epistaxis, headache(s), hoarseness, lip swelling, nasal congestion, neck mass, neck pain, sinus pressure, sore throat, throat swelling, tongue swelling, vertigo - Cardiovascular: Present: chest pain at rest, as per HPI. Absent: chest pain with activity, dyspnea on exertion, edema, claudication, diaphoresis, radiating jaw, neck or arm pain, lightheadedness, orthopnea, palpitations, PND - Respiratory: Present: as per HPI. Absent: dyspnea, dyspnea on exertion, cough , hemoptysis, wheezing, snoring, pain on inspiration - Gastrointestinal: Present: epigastric pain, As per HPI. Absent: bloating, change in bowel habits, constipation, diarrhea, heartburn, hematemesis, hematochezia, loose stools, melena, nausea, vomiting - Genitourinary: Present: urinary incontinence, As per HPI. Absent: difficulty urinating, dysuria, flank pain, hematuria, nocturia, urinary frequency - Musculoskeletal: Present: As per HPI. Absent: arthralgias, back pain, joint swelling, limited range of motion, muscle cramps, muscle weakness, myalgias - Neurological: Present: numbness, near syncope, As per HPI. Absent: abnormal gait, abnormal speech, behavioral changes, confusion, convulsions, disequilibrium, dizziness, focal weakness, frequent falls, headache(s), memory loss, paresthesias, radicular pain, tremor(s) - Psychiatric: Present: As per HPI. Absent: anxiety, confusion, depression, panic attacks - Endocrine: Present: As per HPI. Absent: cold intolerance, fatigue, heat intolerance, polydipsia, polyphagia - Hematologic/Lymphatic: Present: As per HPI. Absent: easy bleeding, easy bruising, lymphadenopathy Medical,Surgical,& Family Hx - Medical History Cardio: History of: CAD, Hypertension, GA HEENT: History of: Glaucoma Endocrine: History of: Diabetes Mellitus (NIDDM) Respiratory: History of: Asthma, COPD - Surgical History Cardiac Surgeries: Sugical HX of: Cardiac Catheterization, Cardiac Surgery (CABG ) - Social History Smoking Status: Former smoker Frequency of Alcohol Use: None Type of Drug Use: None Marital Status: Lives With:: Spouse Functional capacity: independent ambulation Physical Examination Vital Signs Temp Pulse Resp BP Pulse Ox 96.7 F L 66 22 140/54 98 03/06/17 21:26 03/06/17 21:26 03/06/17 21:26 03/06/17 21:26 03/06/17 21:26 Other: General appearance: Pleasant and cooperative. Normal weight, no acute distress. - Head Head exam: Present: normal inspection, normocephalic, atraumatic. Absent: hematoma, laceration - Eye Eye exam: Present: EOMI. Absent: conjunctival injection, nystagmus, periorbital swelling, scleral icterus, laceration to eyelids Pupils: Present: PERRL. Absent: constricted, dilated, fixed, irregular, unequal - ENT ENT exam: Present: normal exam, normal external ear exam - Neck Neck exam: Present: normal inspection. Absent: lymphadenopathy, meningismus, tenderness, thyromegaly - Respiratory Respiratory exam: Present: clear to auscultation bilaterally. Absent: accessory muscle use, chest wall tenderness - Cardiovascular Cardiovascular exam: Present: regular rate and rhythm, bradycardia. Absent: carotid bruit, gallop, JVD, rubs, murmur - GI/Abdominal GI/Abdominal exam: Present: normal bowel sounds, soft. Absent: distended, firm , guarding, hernia, mass, tenderness, rebound. - Extremities Exam Extremities exam: Present: normal inspection, normal capillary refill. Upper extremity pulses 2+. Lower extremity pulses 2+. Absent: calf tenderness, edema -Musculoskeletal Exam Musculoskeletal: Present: No Fluid Collection, No Pain, Normal Range of Motion - Back Exam Back exam: Present: normal inspection. Absent: muscle spasm, vertebral tenderness - Neurological Exam Neurological exam: Present: alert, oriented X3, grossly intact without resting or essential tremor - Psychiatric Psychiatric exam: Present: normal affect, normal mood - Skin Skin exam: Present: normal color, warm, dry, intact. Absent: cyanosis, diaphoretic, rash, urticaria Result/EKG - Labs CBC & BMP: 03/06/17 21:36 03/06/17 21:36 Lab Results: I have reviewed the past 24 hour labs Labs: Laboratory Results - last 24 hr 03/06/17 03/06/17 03/06/17 21:36 21:36 21:36 WBC 9.0 RBC 5.01 Hgb 14.8 Hct 43.9 MCV 87.6 MCH 30 MCHC 33.7 RDW 13.1 Plt Count 188 MPV 13.0 H Neut % (Auto) 67.0 Lymph % (Auto) 19.8 L Coleman % (Auto) 8.4 Eos % (Auto) 3.7 Baso % (Auto) 0.7 Neut # (Auto) 6.1 Lymph # (Auto) 1.8 Coleman # (Auto) 0.8 Eos # (Auto) 0.3 Baso # (Auto) 0.1 Immature Gran % 0.4 Nucleated RBC % 0.0 Immature Gran # 0.04 Nucleated RBCs # 0.00 INR 1.0 PT Patient/Control Mix 10.0 Circ Anticoag PTT 27.5 Sodium 143 Potassium 4.0 Chloride 105 Carbon Dioxide 28 Anion Gap 14.0 BUN 10 Creatinine 0.90 GFR Calculation 103 BUN/Creatinine Ratio 11.00 Glucose 170 H POC Glucose Hemoglobin A1c Calculated Osmolality 287.0 Calcium 8.7 Total Bilirubin 1.00 AST 15 ALT 26 Alkaline Phosphatase 72 Total Creatine Kinase 51 CK-MB (CK-2) 1.4 Troponin I 0.044 B-Natriuretic Peptide Total Protein 6.8 Albumin 3.4 Globulin 3.4 Albumin/Globulin Ratio 1.0 L Triglycerides Cholesterol LDL Cholesterol VLDL Cholesterol HDL Cholesterol Heart Disease Risk Ratio 03/07/17 03/07/17 03/07/17 00:50 00:50 00:50 WBC RBC Hgb Hct MCV MCH MCHC RDW Plt Count MPV Neut % (Auto) Lymph % (Auto) Coleman % (Auto) Eos % (Auto) Baso % (Auto) Neut # (Auto) Lymph # (Auto) Coleman # (Auto) Eos # (Auto) Baso # (Auto) Immature Gran % Nucleated RBC % Immature Gran # Nucleated RBCs # INR PT Patient/Control Mix Circ Anticoag PTT Sodium Potassium Chloride Carbon Dioxide Anion Gap BUN Creatinine GFR Calculation BUN/Creatinine Ratio Glucose POC Glucose Hemoglobin A1c Calculated Osmolality Calcium Total Bilirubin AST ALT Alkaline Phosphatase Total Creatine Kinase CK-MB (CK-2) Troponin I 0.425 H D B-Natriuretic Peptide 597 H Total Protein Albumin Globulin Albumin/Globulin Ratio Triglycerides 88 Cholesterol 151 LDL Cholesterol 98.0 VLDL Cholesterol 17.6 HDL Cholesterol 40 Heart Disease Risk Ratio 3.78 03/07/17 03/07/17 03/07/17 00:50 02:55 06:53 WBC RBC Hgb Hct MCV MCH MCHC RDW Plt Count MPV Neut % (Auto) Lymph % (Auto) Coleman % (Auto) Eos % (Auto) Baso % (Auto) Neut # (Auto) Lymph # (Auto) Coleman # (Auto) Eos # (Auto) Baso # (Auto) Immature Gran % Nucleated RBC % Immature Gran # Nucleated RBCs # INR PT Patient/Control Mix Circ Anticoag PTT Sodium Potassium Chloride Carbon Dioxide Anion Gap BUN Creatinine GFR Calculation BUN/Creatinine Ratio Glucose POC Glucose Hemoglobin A1c 6.7 H Calculated Osmolality Calcium Total Bilirubin AST ALT Alkaline Phosphatase Total Creatine Kinase CK-MB (CK-2) Troponin I 0.596 H D 0.847 H D B-Natriuretic Peptide Total Protein Albumin Globulin Albumin/Globulin Ratio Triglycerides Cholesterol LDL Cholesterol VLDL Cholesterol HDL Cholesterol Heart Disease Risk Ratio 03/07/17 07:02 WBC RBC Hgb Hct MCV MCH MCHC RDW Plt Count MPV Neut % (Auto) Lymph % (Auto) Coleman % (Auto) Eos % (Auto) Baso % (Auto) Neut # (Auto) Lymph # (Auto) Coleman # (Auto) Eos # (Auto) Baso # (Auto) Immature Gran % Nucleated RBC % Immature Gran # Nucleated RBCs # INR PT Patient/Control Mix Circ Anticoag PTT Sodium Potassium Chloride Carbon Dioxide Anion Gap BUN Creatinine GFR Calculation BUN/Creatinine Ratio Glucose POC Glucose 131 H Hemoglobin A1c Calculated Osmolality Calcium Total Bilirubin AST ALT Alkaline Phosphatase Total Creatine Kinase CK-MB (CK-2) Troponin I B-Natriuretic Peptide Total Protein Albumin Globulin Albumin/Globulin Ratio Triglycerides Cholesterol LDL Cholesterol VLDL Cholesterol HDL Cholesterol Heart Disease Risk Ratio - EKG EKG results: interpreted by me, sinus rhythm EKG shows: bradycardia (with incomplete LBBB, occasional PVC)
[2017-03-07 11:09] LABS: Troponin I Only 0.655 NG/ML (0.00-0.045)
--- NOTE | 2017-03-07 12:26 | Ultrasound Report ---
US carotid duplex BI Indication: Near syncope. Comparison: None. Technique: Multiple longitudinal and transverse real-time sonographic images of the bilateral carotid arterial systems are obtained with grayscale, spectral, and color Doppler analysis. Findings: Peak systolic velocities within the right CCA, proximal ICA, and distal ICA are 66, 263, and 190 cm/s respectively. Peak systolic velocities within the left CCA, proximal ICA, and distal ICA are 47, 247, and 242 cm/s respectively. ICA/CCA ratios on the right and left are 4.0 and 5.2 respectively. Antegrade flow demonstrated within the bilateral vertebral arteries. Grayscale imaging demonstrates moderate to severe bilateral atherosclerotic plaque. 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 Consider CTA neck for further evaluation. Indirect NASCET criteria utilized. PROCEDURE INTERPRETED AT [facility] DEPARTMENT OF RADIOLOGY Final Report Signed by: Dr Cricket Ochoa
--- NOTE | 2017-03-07 15:21 | Hospitalist Progress Note ---
Assessment and Plan - Time spent with patient Time spent with patient: Greater than 30 minutes (See listed as above.) Hospitalist: Subjective Interval history: Subjective: Adm H&P (written after midnight) reviewed by me today. Pt had near syncope this morning and concerning for vasovagal sycope episode. Cardilogy consulted. GI consulted due to dysphagia. Pt declined Neurolgy consult. Pt states that he feels better now and he has similar episode in the past. Carotid US showed stenosis 70% and suggest CTA. Objective: On PE: VS noted. General: lying in bed supine. AAOx3. HEENT: NT AC EOMI, normal lips and tongusDecreased breath sound at b/l lower lobes. Lungs: Fair air movement. Decreased breath sound on b/l lower lobes. HEART: RRR, no gallops. ABD: +BS NT ND. Skin: No hives or rash. Neuro: AAOx3. Can move extremities. Assessment: Atypical chest pain HTN CAD COPD HLD Dysphagia Near syncope Plan: I reviewed pt's lab results today. I reviewed pt's image study reports and images today. I discussed with pt, Cards, and RN in regarding his clinical status today. Will do CTA, CT head in am. Will also do CT chest in am to r/o underlying lung disease that may contribute to pt's chest pain. Continue current treatment plan. Reeval in am. Time spent: 35 min including chart review as pt is new to me. Exam - Constitutional Vitals: Period Temp Pulse Resp BP Sys/Burton Pulse Ox Last 24 Hr 96.7 F-98.6 F 57-95 15-22 110-163/54-73 94-100 Exam: See listed as above. Results - Labs CBC & BMP: 03/06/17 21:36 03/06/17 21:36
[2017-03-07 17:46] LABS: Troponin I Only 0.496 NG/ML (0.00-0.045)
[2017-03-07] MEDS ORDERED: PRAVASTATIN 20 MG TABLET PO SCH (21:00)
[2017-03-07] MEDS ORDERED: CHOLECALCIFEROL 1,000 UNIT TABLET PO SCH (21:00)
[2017-03-07] MEDS ORDERED: GABAPENTIN 300 MG CAPSULE PO SCH (21:00)
[2017-03-07] MEDS ORDERED: OMEGA 3 ACID ETHYL ESTERS 1 GM CAPSULE PO SCH (21:00)
[2017-03-07] MEDS ORDERED: LATANOPROST 0.005% OPH SOLN 2.5 ML BOTTLE BOTH EYES SCH (21:00)
[2017-03-07] MEDS ORDERED: MONTELUKAST 10 MG TABLET PO SCH (21:00)
[2017-03-07] MEDS ORDERED: LISINOPRIL 10 MG TABLET PO SCH (21:00)
[2017-03-08] MEDS: NITROGLYCERIN 2% OINT 1 INCH/GM PACK TOP SCH ×3 (00:02→14:15)
[2017-03-08 04:52] LABS: Basophils % 0.5 % (0.0-0.8); Eosinophils # 0.2 10*3/uL (0.0-0.87); Eosinophils % 2.4 % (0.00-10.9); Hematocrit 40.1 VOL% (42.0-52.0); Hemoglobin 13.4 GM/DL (14.0-18.0); Immature Granulocytes % 0.6 %; Immature Granulocytes Absolute 0.05 #; Lymphocytes % 23.7 % (21.2-54.2); Mean Corpuscular HGB Conc 33.4 GM/DL (32-36); Mean Corpuscular Hemoglobin 29 PG (27-34); Mean Corpuscular Volume 87.4 FL (87-102); Monocytes # 0.8 10*3/uL (0.11-0.8); Monocytes % 8.9 % (1.7-12.7); Neutrophils # 5.5 10*3/uL (1.4-7.4); Neutrophils % 63.9 % (38.7-73.9); Platelet Count 179 T/CUMM (130-400); Red Blood Count 4.59 MC/CUMM (3.8-5.5); Red Cell Distribution Width 13.2 % (9.3-17.3); White Blood Count 8.6 T/CUMM (4-12)
[2017-03-08 05:19] LABS: Calcium 8.4 MG/DL (8.5-10.1); Magnesium 2.2 MG/DL (1.8-2.4); Osmolality,Calculated 282.4 MOS/KG (273-304)
--- NOTE | 2017-03-08 08:24 | CT Report ---
History is syncope There is diffuse atrophy with mild patchy white matter low densities present. No acute intracranial hemorrhage or mass effects seen. Vertebrobasilar ectasia present with atherosclerotic changes present in the distal ICAs as well as distal vertebral arteries No acute cortical stroke is seen Impression: 1. Mild diffuse atrophy 2. Mild patchy nonspecific white matter low densities most frequently associated with sequelae of microvascular disease 3. Atherosclerotic changes The CT exam was performed using one or more of the following dose reduction techniques: Automated exposure control, adjustment of the mA and/or kV according to patient size, or use of iterative reconstruction technique. PROCEDURE INTERPRETED AT [facility] DEPARTMENT OF RADIOLOGY Final Report Signed by: Dr. Sally Alvarez
--- NOTE | 2017-03-08 08:34 | CT Report ---
History is pleural effusion and syncope. The heart is enlarged. There are coronary artery calcifications with calcifications along the aortic arch is well. There is a 7 mm pretracheal node. No larger than 1 cm mediastinal or hilar nodes identified. There is a small right pleural effusion Images through the upper abdomen show a 3 cm primarily fat density lesion in the right adrenal gland as seen on prior study of 10/10/2016 There is a 9 mm noncalcified nodule in the right lower lobe. There is a 3 mm nodular density in the right lung apex. Calcified granuloma present in the left upper lobe. The head trainee density in the right apex is unchanged in the interval. The nodule in the right lower lobe was likely unchanged in the interval but was partially obscured by atelectasis and a larger pleural effusion on the prior study. Impression: 1. Small right pleural effusion, improved in the interval 2. Noncalcified right lung nodules likely unchanged in the interval although partially obscured on the prior study. Comparison with any available more remote studies would be most helpful. Otherwise, follow-up CT in another 6 months recommended 3. Atherosclerotic changes 4. Right adrenal myelolipoma The CT exam was performed using one or more of the following dose reduction techniques: Automated exposure control, adjustment of the mA and/or kV according to patient size, or use of iterative reconstruction technique. PROCEDURE INTERPRETED AT [facility] DEPARTMENT OF RADIOLOGY Final Report Signed by: Dr. Sally Alvarez
[2017-03-08] MEDS: CARVEDILOL 6.25 MG TABLET PO SCH (08:55)
[2017-03-08] MEDS: FUROSEMIDE 20 MG TABLET PO SCH (08:55)
[2017-03-08] MEDS: ENOXAPARIN 40 MG/0.4 ML SYRINGE SUBCUT SCH (08:55)
[2017-03-08] MEDS: COENZYME Q10 100 MG CAPSULE PO SCH (08:55)
[2017-03-08] MEDS: ASPIRIN EC 325 MG TABLET PO SCH (08:55)
[2017-03-08] MEDS: ISOSORBIDE MONONITRATE 60 MG TABLET PO SCH ×2 (08:55→14:15)
[2017-03-08] MEDS: MULTIVITAMIN (CENTRUM) TABLET PO SCH (08:55)
--- NOTE | 2017-03-08 10:27 | Discharge Summary ---
<Kalli Joshi - Last Filed: 03/08/17 10:24> Hospital Course - Hospital Course Hospital Course: Mr. Harrell is a 86-year-old white male patient with a history of coronary artery disease, CAB, COPD, hypertension, hyperlipidemia that presented to the ED on 03/06 with complaints of chest pain. Patient complains of retrosternal chest pain that started 2 hours prior to him presenting into the ED. patient stated that the pain radiated down to both shoulders but he did not have any associated symptoms of shortness of breath, diaphoresis, nausea or vomiting. Patient states he took 2 nitroglycerin tablets without relief with the pain only worsened and did not resolve until he took 2 aspirin. Patient called EMS and was brought into the ED for further evaluation. Patient was admitted to the hospitalist service and cardiology was consulted to see patient. Cardiac enzymes were drawn for the patient. Patient had an elevated troponin 0.044 which increased to 0.596. Per cardiology note, patient's presentation of chest pain was atypical. Recommendation was made for continuation of current medication therapy with no interventions at this time. There was a recommendation for neurology to see patient for possible vasovagal episode versus near syncope versus seizure however patient and his declined seeing a neurologist at this time. Bilateral carotid bruits were obtained which suggested 70% or greater narrowing of the cervical internal carotid arteries bilaterally. Patient and his did not want to proceed with any type of further treatment and evaluation. After speaking with Dr. Quijano patient also desire to change CODE STATUS from full code to DO NOT RESUSCITATE. CT chest revealed right lung nodules. Recommendation for patient follow-up in [address] patient labs are stable today. Last troponin was 0.496. Cardiology consulted and suggested medical management. CTA neck showed sternosis on carotid artery, pt will need to f/u with Surgeon Dr. Coleman clinic in 1-2 weeks. Patient's chest pain has resolved and he is ready for discharge. Patient is to follow-up with primary provider. Specialty Discharge - Follow Up or Referrals Follow up with: Bony Coleman MD [Physician] - (follow up next week outpatient to evaluate carotid stenosis) Discharge Plan - Discharge Data Disposition: Disch To Home/Self Care - Discharge Medications Continue Latanoprost [Latanoprost 0.005 % Oph Soln] 1 drop BOTH EYES BEDTIME Gabapentin 300 mg PO BID [place]-3/Dha/Epa/Fish Oil [Fish Oil 1,000 mg Softgel] 1 each PO BEDTIME Albuterol Sulfate [Proair HFA] 2 puff INH Q4H PRN PRN Reason: Shortness Of Breath/Wheezing Pravastatin Sodium 20 mg PO BEDTIME Furosemide Tab [Lasix Tab] 20 mg PO DAILY Nitroglycerin Sl Tab [Nitrostat] 0.4 mg SL Q5M PRN PRN Reason: Chest Pain Carvedilol [Coreg] 6.25 mg PO BID Montelukast Tab [Singulair Tab] 10 mg PO BEDTIME Krill/Om-3/Dha/Epa/Phospho/Ast [[place]-3 Krill Oil 300 mg Sfgl] 1 each PO DAILY NIFEdipine [Nifedipine ER] 30 mg PO BEDTIME Multivitamin with Minerals [Multivitamins with Minerals] 1 each PO DAILY Isosorbide Mononitrate [Isosorbide Mononitrate ER] 60 mg PO QID Aspirin 325 mg PO DAILY Cholecalciferol (Vitamin D3) [Vitamin D3] 1,000 unit PO BEDTIME Ubidecarenone/Vit E Acet [Co Q-10 100 mg Softgel] 1 each PO DAILY Lisinopril 10 mg PO BEDTIME - Follow Up or Referral Follow Up: Bony Coleman MD [Physician] - (follow up next week outpatient to evaluate carotid stenosis) - Forms/Instructions Exam - Constitutional Vitals: Period Temp Pulse Resp BP Sys/Burton Pulse Ox Last 24 Hr 97.6 F-98.6 F 66-78 16-20 106-154/55-88 93-98 Discharge Results Procedures and tests throughout hospitalization: Pending Orders 03/09/17 04:00 BMP w/ Mg [Basic Metabolic Panel w/Mg] IN AM CBC [Comp Blood Count Auto Diff] IN AM 03/10/17 04:00 BMP w/ Mg [Basic Metabolic Panel w/Mg] IN AM CBC [Comp Blood Count Auto Diff] IN AM Labs on day of discharge: Labs from last 24 hours 03/08/17 03/08/17 03/08/17 11:08 07:22 03:37 WBC RBC Hgb Hct MCV MCH MCHC RDW Plt Count MPV Neut % (Auto) Lymph % (Auto) Bertie % (Auto) Eos % (Auto) Baso % (Auto) Neut # (Auto) Lymph # (Auto) Bertie # (Auto) Eos # (Auto) Baso # (Auto) Immature Gran % Nucleated RBC % Immature Gran # Nucleated RBCs # D-Dimer, Quantitative Sodium 140 Potassium 4.0 Chloride 102 Carbon Dioxide 31 Anion Gap 11.0 BUN 20 H Creatinine 1.00 GFR Calculation 85 BUN/Creatinine Ratio 20.00 Glucose 114 H POC Glucose 143 H 168 H Calculated Osmolality 282.4 Calcium 8.4 L Magnesium 2.2 Total Bilirubin Total Creatine Kinase CK-MB (CK-2) Troponin I 03/08/17 03/07/17 03/07/17 03:37 19:36 16:41 WBC 8.6 RBC 4.59 Hgb 13.4 L Hct 40.1 L MCV 87.4 MCH 29 MCHC 33.4 RDW 13.2 Plt Count 179 MPV 13.0 H Neut % (Auto) 63.9 Lymph % (Auto) 23.7 Bertie % (Auto) 8.9 Eos % (Auto) 2.4 Baso % (Auto) 0.5 Neut # (Auto) 5.5 Lymph # (Auto) 2.0 Bertie # (Auto) 0.8 Eos # (Auto) 0.2 Baso # (Auto) 0.0 Immature Gran % 0.6 Nucleated RBC % 0.0 Immature Gran # 0.05 Nucleated RBCs # 0.00 D-Dimer, Quantitative Sodium Potassium Chloride Carbon Dioxide Anion Gap BUN Creatinine GFR Calculation BUN/Creatinine Ratio Glucose POC Glucose 126 H 130 H Calculated Osmolality Calcium Magnesium Total Bilirubin Total Creatine Kinase CK-MB (CK-2) Troponin I 03/07/17 03/07/17 03/06/17 16:41 16:41 21:36 WBC RBC Hgb Hct MCV MCH MCHC RDW Plt Count MPV Neut % (Auto) Lymph % (Auto) Bertie % (Auto) Eos % (Auto) Baso % (Auto) Neut # (Auto) Lymph # (Auto) Bertie # (Auto) Eos # (Auto) Baso # (Auto) Immature Gran % Nucleated RBC % Immature Gran # Nucleated RBCs # D-Dimer, Quantitative 1.0 Sodium Potassium Chloride Carbon Dioxide Anion Gap BUN Creatinine GFR Calculation BUN/Creatinine Ratio Glucose POC Glucose Calculated Osmolality Calcium Magnesium Total Bilirubin 1.00 Total Creatine Kinase 63 D CK-MB (CK-2) 2.3 Troponin I 0.496 H D DS: Provider Date of admission: 03/07/17 11:16 Primary care physician: . No PCP Attending physician on admission: Carlos Zavala MD Consults: 03/07/17 00:15 Consult to Physician [CONS] Routine Comment: Consulting Provider: Cardiology - [facility] Consult to Specialist Group: Cardiology When should Consulting Provider be notified: In am Person Notified: Nilson Date Notified: 03/07/17 Time Notified: 08:15 03/07/17 12:12 Consult to Physician [CONS] Routine Comment: dysphagia, non-cardiac CP, epigastric pain/tendern Consulting Provider: Consult to Specialist Group: Gastroenterology When should Consulting Provider be notified: Now Person Notified: DR. AYALA Date Notified: 03/07/17 Time Notified: 12:32 Consult Notification Comment: PER DR. AYALA "JUST PUT IT IN THE COMPUTER". Discharging clinician: Kalli Joshi NP <Cholo Quijano - Last Filed: 03/09/17 07:09> Hospital Course - Time spent with patient Time with patient DS: Greater than 30 minutes (I saw and examined pt in his room today. I discussed with pt and his in regarding code status today. Pt and his desire DNR code status. I agree with history, physical, assessment and plan listed as above by our HAND [employer]. Pt will need to see his PCP in 1-2 weeks for follow up. Pt will need to see his PCP to repeat CT chest due to lung nodule ) Discharge Plan - Discharge Data Condition at Discharge: Stable Discharge Diet: heart healthy Activity: resume usual activities as tolerated - Forms/Instructions Additional Discharge Instructions: Carotid artery stenosis, need to see Dr. Coleman in 1 week. Exam - Constitutional Exam: On PE: VS noted. General: lying in bed supine. AAOx3. HEENT: NT AC EOMI, normal lips and tongus Lungs: Fair air movement. Decreased breath sound on b/l lower lobes. HEART: RRR, no gallops. ABD: +BS NT ND. Skin: No hives or rash. Neuro: AAOx3. Can move extremities. DS: Provider Expected date of discharge: 03/08/17 (Need to follow up with surgery Dr. Coleman for carotid artery stenosis in 1-2 weeks.)
--- NOTE | 2017-03-08 10:31 | CT Report ---
History is abnormal carotid Doppler, syncope. 80 cc Omni 350 utilized Axial images obtained with 2-D multiplanar and 3-D CTA reconstruction images also stored and interpreted Findings: Densities in the upper lung santana described on chest CT of same day. There are atherosclerotic changes present at the aortic arch. There is a short common trunk of the right brachial cephalic and left common carotid arteries. There is tortuosity of the proximal great vessels. The left vertebral artery is occluded. There is mild calcified plaque and stenoses in the proximal subclavian arteries bilaterally. Densely calcified plaque limits ability to evaluate for the underlying degree of stenosis There is a large amount of very dense calcified plaque in the proximal ICA on the right with resulting streak artifact. There is felt to be an at least 60-70% maximum diameter stenosis on the right. There is tortuosity of the distal cervical ICA on the right. There is a large amount of calcified and soft plaque in the proximal ICA on the left with an at least 80% and perhaps a greater degree of underlying stenosis. There is tortuosity of the left ICA indenting the posterior hypopharynx. Mild calcified and soft plaque present more distally in the cervical ICA on the left. Impression: 1. Densely calcified plaque limits evaluation of the degree of underlying stenosis. There is at least 80% diameter stenosis of proximal ICA on the left and at least 60-70% diameter stenosis in the proximal ICA on the right. 2. Left vertebral artery occlusion The CT exam was performed using one or more of the following dose reduction techniques: Automated exposure control, adjustment of the mA and/or kV according to patient size, or use of iterative reconstruction technique. PROCEDURE INTERPRETED AT [facility] DEPARTMENT OF RADIOLOGY Final Report Signed by: Dr. Sally Alvarez
--- NOTE | 2017-03-08 11:02 | CT Report ---
History is carotid stenosis and syncope 80 cc Omni 350 utilized. Axial images obtained throughout the [place] of [place] with 2-D multiplanar reconstruction images also stored and interpreted The distal left vertebral artery is occluded. There is calcified plaque in the distal right vertebral artery and proximal basilar artery there is a mild stenosis. There is a densely calcified plaque limiting visualization of the degree of underlying stenosis in both cavernous ICAs. This also limited by adjacent bony structures. There is prominent tortuosity in both cavernous ICAs. There is a moderate moderate petrous ICA stenosis on the right. There is mild to moderate stenoses throughout the cavernous ICA on the right. There are [id number] stenoses throughout the cavernous ICA on the left. There is a good caliber flow in the visualized MCA GUI and ECA branches bilaterally. No obvious CT evidence of the aneurysm seen. Impression: 1. Distal left vertebral artery occlusion 2. 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 Multiple mild/moderate bilateral cavernous ICA stenoses 4. moderate petrous right ICA stenosis The CT exam was performed using one or more of the following dose reduction techniques: Automated exposure control, adjustment of the mA and/or kV according to patient size, or use of iterative reconstruction technique. PROCEDURE INTERPRETED AT [facility] DEPARTMENT OF RADIOLOGY Final Report Signed by: Dr. Sally Alvarez
[2017-03-08 11:48] VITALS: BP 154/63
--- NOTE | 2017-03-08 15:28 | Cardiology Progress Note ---
Assessment and Plan - Time spent with patient Time spent with patient: Greater than 30 minutes (1) Atypical chest pain Status: Acute Assessment and plan: No more chest pain. By symptoms his chest pain with flat troponins was probably GI related. Could be muscle skeletal Regarding his carotid disease he declines further evaluation. Okay with me to discharge him with follow-up with Dr. Barkley--- another cooling room attendant to re-see him as needed. Thank you for allowing me to participate in this patient's care (2) Chest pain Status: Acute (3) Dysphagia Status: Acute (4) Dyspnea Status: Acute (5) 3-vessel coronary artery disease Status: Chronic (6) COPD (chronic obstructive pulmonary disease) Status: Chronic (7) Dyslipidemia Status: Chronic (8) Hypertension Status: Chronic Cardiology - PN: Subj Interval history: No chest pains. Less shortness of breath. Exam (Progress Note) - Constitutional Vitals: Period Temp Pulse Resp BP Sys/Burton Pulse Ox Last 24 Hr 97.6 F-98.6 F 66-78 16-20 106-154/55-88 93-98 Exam: HEENT: Pupils equal, reactive to light and accommodation Neck: NoJVD or bruit Lungs clear to auscultation Heart: Regular rhythm rate with normal S1 and S2. Apical S4 Abdomen: No hepatosplenomegaly Spine/extremities: No clubbing, cyanosis, or edema Neuro: Nonfocal Psych: No depression or anxiety Result/EKG - Labs CBC & BMP: 03/08/17 03:37 03/08/17 03:37 Labs: Laboratory Results - last 24 hr 03/07/17 03/07/17 03/07/17 16:41 16:41 16:41 WBC RBC Hgb Hct MCV MCH MCHC RDW Plt Count MPV Neut % (Auto) Lymph % (Auto) [place] % (Auto) Eos % (Auto) Baso % (Auto) Neut # (Auto) Lymph # (Auto) [place] # (Auto) Eos # (Auto) Baso # (Auto) Immature Gran % Nucleated RBC % Immature Gran # Nucleated RBCs # D-Dimer, Quantitative 1.0 Sodium Potassium Chloride Carbon Dioxide Anion Gap BUN Creatinine GFR Calculation BUN/Creatinine Ratio Glucose POC Glucose 130 H Calculated Osmolality Calcium Magnesium Total Creatine Kinase 63 D CK-MB (CK-2) 2.3 Troponin I 0.496 H D 03/07/17 03/08/17 03/08/17 19:36 03:37 03:37 WBC 8.6 RBC 4.59 Hgb 13.4 L Hct 40.1 L MCV 87.4 MCH 29 MCHC 33.4 RDW 13.2 Plt Count 179 MPV 13.0 H Neut % (Auto) 63.9 Lymph % (Auto) 23.7 Powell % (Auto) 8.9 Eos % (Auto) 2.4 Baso % (Auto) 0.5 Neut # (Auto) 5.5 Lymph # (Auto) 2.0 Powell # (Auto) 0.8 Eos # (Auto) 0.2 Baso # (Auto) 0.0 Immature Gran % 0.6 Nucleated RBC % 0.0 Immature Gran # 0.05 Nucleated RBCs # 0.00 D-Dimer, Quantitative Sodium 140 Potassium 4.0 Chloride 102 Carbon Dioxide 31 Anion Gap 11.0 BUN 20 H Creatinine 1.00 GFR Calculation 85 BUN/Creatinine Ratio 20.00 Glucose 114 H POC Glucose 126 H Calculated Osmolality 282.4 Calcium 8.4 L Magnesium 2.2 Total Creatine Kinase CK-MB (CK-2) Troponin I 03/08/17 03/08/17 07:22 11:08 WBC RBC Hgb Hct MCV MCH MCHC RDW Plt Count MPV Neut % (Auto) Lymph % (Auto) [place] % (Auto) Eos % (Auto) Baso % (Auto) Neut # (Auto) Lymph # (Auto) Powell # (Auto) Eos # (Auto) Baso # (Auto) Immature Gran % Nucleated RBC % Immature Gran # Nucleated RBCs # D-Dimer, Quantitative Sodium Potassium Chloride Carbon Dioxide Anion Gap BUN Creatinine GFR Calculation BUN/Creatinine Ratio Glucose POC Glucose 168 H 143 H Calculated Osmolality Calcium Magnesium Total Creatine Kinase CK-MB (CK-2) Troponin I Specialty Discharge - Follow Up or Referrals Follow up with: Bony Coleman MD [Physician] - (follow up next week outpatient to evaluate carotid stenosis)
== END 2017-03-08 14:54 | disposition home or self-care (01) | DRG 313 ==
LOC: N.EDINP 21:25 → N.ED 21:25 → SUATTDRO 03-07 00:03 → N.TELES 03-07 00:25
PROVIDERS: ADMIT Internal Medicine; ATTEND Internal Medicine

== ENCOUNTER 2018-11-24 08:05 | Inpatient (IN) ==
[2018-11-24] MEDS ORDERED: FUROSEMIDE 100 MG/10 ML VIAL IV STA (08:32)
[2018-11-24 08:53] LABS: Basophils # 0.1 10*3/uL (0.0-0.2); Basophils % 0.6 % (0.0-0.8); Eosinophils # 0.2 10*3/uL (0.0-0.87); Eosinophils % 1.7 % (0.00-10.9); Hematocrit 45.3 VOL% (42.0-52.0); Hemoglobin 14.2 GM/DL (14.0-18.0); Immature Granulocytes % 0.6 %; Immature Granulocytes Absolute 0.06 #; Lymphocytes # 1.3 10*3/uL (1.4-4.0); Lymphocytes % 12.8 % (21.2-54.2); Mean Corpuscular HGB Conc 31.3 GM/DL (32-36); Mean Corpuscular Hemoglobin 27 PG (27-34); Mean Corpuscular Volume 87.5 FL (87-102); Mean Platelet Volume 12.5 FL (9.6-12.0); Monocytes # 0.7 10*3/uL (0.11-0.8); Monocytes % 7.1 % (1.7-12.7); Neutrophils % 77.2 % (38.7-73.9); Platelet Count 312 T/CUMM (130-400); Red Blood Count 5.18 MC/CUMM (3.8-5.5); Red Cell Distribution Width 14.2 % (9.3-17.3); White Blood Count 10.4 T/CUMM (4-12)
[2018-11-24 09:02] LABS: PT Patient Result 10.7 SECS; Partial Thromboplastin Time 28.7 SECS (0-40)
[2018-11-24 09:37] LABS: Albumin 3.1 G/DL (3.4-5.0); Bilirubin,Total 0.4 MG/DL (0.2-1.0); Calcium 9.1 MG/DL (8.5-10.1); Osmolality,Calculated 280.4 MOS/KG (273-304); Potassium 4.2 MMOL/L (3.5-5.1); Total Protein 7.4 G/DL (6.4-8.3)
[2018-11-24] MEDS ORDERED: NITROGLYCERIN SL 0.4 MG TABLET SL PRN (10:30)
[2018-11-24] MEDS ORDERED: NON-FORMULARY MEDICATION (Albuterol Sulfate [Proair Hfa] 2 PUFF) INH PRN (10:30)
[2018-11-24] MEDS ORDERED: MAGNESIUM SULF RIDER 2 GM in PREMIX 1 EACH IV PRN (10:31)
[2018-11-24] MEDS ORDERED: MAGNESIUM SULF RIDER 4 GM in PREMIX 1 EACH IV PRN (10:31)
[2018-11-24] MEDS ORDERED: ALBUTEROL 2.5 MG/3 ML NEB RESP TX PRN (12:58)
[2018-11-24] MEDS ORDERED: DEXTROSE 50% 25 GM/50 ML SYRINGE IV PRN (12:58)
[2018-11-24] MEDS ORDERED: POTASSIUM CHLORIDE RIDER 10 MEQ in PREMIX 1 EACH IV PRN (12:58)
[2018-11-24] MEDS ORDERED: GLUCAGON 1 MG VIAL IM PRN (12:58)
[2018-11-24] MEDS ORDERED: methylPREDNISolone SOD SUC 40 MG/1 ML VIAL IV SCH (13:00)
[2018-11-24] MEDS: ALBUTEROL/IPRATROPIUM 3 ML NEB RESP TX SCH ×2 (13:52→19:26)
[2018-11-24] MEDS: FUROSEMIDE 40 MG/4 ML VIAL IV SCH (17:29)
[2018-11-24] MEDS: INSULIN REGULAR 100 UNIT/ML SUBCUT SCH ×2 (17:30→22:01)
[2018-11-24] MEDS ORDERED: LISINOPRIL 10 MG TABLET PO SCH (21:00)
[2018-11-24] MEDS: APIXABAN 5 MG TABLET PO SCH (22:01)
[2018-11-24] MEDS: GABAPENTIN 100 MG CAPSULE PO SCH (22:01)
[2018-11-24] MEDS: CHOLECALCIFEROL 1,000 UNIT TABLET PO SCH (22:01)
[2018-11-24] MEDS: ISOSORBIDE MONONITRATE 60 MG TABLET PO SCH (22:01)
[2018-11-24] MEDS: MONTELUKAST 10 MG TABLET PO SCH (22:01)
[2018-11-24] MEDS: CARVEDILOL 6.25 MG TABLET PO SCH (22:01)
[2018-11-24] MEDS: methylPREDNISolone SOD SUC 40 MG/1 ML VIAL IV SCH (22:02)
[2018-11-24] MEDS: SIMVASTATIN 10 MG TABLET PO SCH (22:02)
[2018-11-24] MEDS: LATANOPROST 0.005% OPH SOLN 2.5 ML BOTTLE BOTH EYES SCH (22:02)
[2018-11-25] MEDS: methylPREDNISolone SOD SUC 40 MG/1 ML VIAL IV SCH ×4 (04:33→21:22)
[2018-11-25 05:11] LABS: Basophils % 0.1 % (0.0-0.8); Hematocrit 41.9 VOL% (42.0-52.0); Hemoglobin 13.5 GM/DL (14.0-18.0); Immature Granulocytes % 0.6 %; Immature Granulocytes Absolute 0.06 #; Lymphocytes # 0.9 10*3/uL (1.4-4.0); Lymphocytes % 8.5 % (21.2-54.2); Mean Corpuscular HGB Conc 32.2 GM/DL (32-36); Mean Corpuscular Hemoglobin 28 PG (27-34); Mean Corpuscular Volume 85.5 FL (87-102); Mean Platelet Volume 12.5 FL (9.6-12.0); Monocytes # 0.1 10*3/uL (0.11-0.8); Monocytes % 1.3 % (1.7-12.7); Neutrophils # 9.7 10*3/uL (1.4-7.4); Neutrophils % 89.5 % (38.7-73.9); Platelet Count 314 T/CUMM (130-400); Red Cell Distribution Width 14.3 % (9.3-17.3); White Blood Count 10.8 T/CUMM (4-12)
[2018-11-25 05:47] LABS: Albumin 2.9 G/DL (3.4-5.0); Bilirubin,Total 0.8 MG/DL (0.2-1.0); Calcium 9.1 MG/DL (8.5-10.1); Osmolality,Calculated 278.8 MOS/KG (273-304); Potassium 3.7 MMOL/L (3.5-5.1); Total Protein 7.7 G/DL (6.4-8.3)
[2018-11-25] MEDS: ALBUTEROL/IPRATROPIUM 3 ML NEB RESP TX SCH ×4 (07:26→19:18)
[2018-11-25] MEDS ORDERED: PHOSPHO PO SCH (09:00)
[2018-11-25] MEDS ORDERED: DHA PO SCH (09:00)
[2018-11-25] MEDS ORDERED: [UNRECOGNIZED DRUG - OTHER] PO SCH (09:00)
[2018-11-25] MEDS ORDERED: KRILL PO SCH (09:00)
[2018-11-25] MEDS ORDERED: AST PO SCH (09:00)
[2018-11-25] MEDS ORDERED: EPA PO SCH (09:00)
[2018-11-25] MEDS ORDERED: ASPIRIN 325 MG TABLET PO SCH (09:00)
[2018-11-25] MEDS: FUROSEMIDE 40 MG/4 ML VIAL IV SCH (09:58)
[2018-11-25] MEDS: COENZYME Q10 100 MG CAPSULE PO SCH (10:00)
[2018-11-25] MEDS: APIXABAN 5 MG TABLET PO SCH ×2 (10:00→21:14)
[2018-11-25] MEDS: OMEGA 3 ACID ETHYL ESTERS 1 GM CAPSULE PO SCH (10:00)
[2018-11-25] MEDS: LISINOPRIL 10 MG TABLET PO SCH (10:01)
[2018-11-25] MEDS: ISOSORBIDE MONONITRATE 60 MG TABLET PO SCH ×2 (10:01→21:14)
[2018-11-25] MEDS: MULTIVITAMIN (CENTRUM) TABLET PO SCH (10:01)
[2018-11-25] MEDS: CARVEDILOL 6.25 MG TABLET PO SCH ×2 (10:02→21:15)
[2018-11-25] MEDS: ASPIRIN EC 81 MG TABLET PO SCH (10:02)
[2018-11-25] MEDS: SPIRONOLACTONE 25 MG TABLET PO SCH (10:02)
[2018-11-25] MEDS: GABAPENTIN 100 MG CAPSULE PO SCH ×2 (10:04→21:14)
[2018-11-25] MEDS: INSULIN REGULAR 100 UNIT/ML SUBCUT SCH ×4 (10:04→21:15)
[2018-11-25] MEDS: MONTELUKAST 10 MG TABLET PO SCH (21:14)
[2018-11-25] MEDS: CHOLECALCIFEROL 1,000 UNIT TABLET PO SCH (21:14)
[2018-11-25] MEDS: SIMVASTATIN 10 MG TABLET PO SCH (21:14)
[2018-11-25] MEDS: LATANOPROST 0.005% OPH SOLN 2.5 ML BOTTLE BOTH EYES SCH (21:15)
[2018-11-26] MEDS: ALBUTEROL/IPRATROPIUM 3 ML NEB RESP TX SCH ×4 (00:51→19:02)
[2018-11-26] MEDS: methylPREDNISolone SOD SUC 40 MG/1 ML VIAL IV SCH ×2 (02:40→09:14)
[2018-11-26 05:15] LABS: Basophils % 0.1 % (0.0-0.8); Hematocrit 40.4 VOL% (42.0-52.0); Hemoglobin 12.8 GM/DL (14.0-18.0); Immature Granulocytes % 0.8 %; Immature Granulocytes Absolute 0.18 #; Lymphocytes % 4.4 % (21.2-54.2); Mean Corpuscular HGB Conc 31.7 GM/DL (32-36); Mean Corpuscular Hemoglobin 27 PG (27-34); Mean Platelet Volume 12.3 FL (9.6-12.0); Monocytes # 0.5 10*3/uL (0.11-0.8); Monocytes % 2.3 % (1.7-12.7); Neutrophils # 20.5 10*3/uL (1.4-7.4); Neutrophils % 92.4 % (38.7-73.9); Platelet Count 307 T/CUMM (130-400); Red Cell Distribution Width 14.5 % (9.3-17.3); White Blood Count 22.2 T/CUMM (4-12)
[2018-11-26 05:37] LABS: Lymphocytes 3 % (20-55); Platelet Estimate Adequate; Segmented Neutrophils 95 % (50-85); Total Cells Counted 100
[2018-11-26 05:38] LABS: Hypochromasia 1+
[2018-11-26 05:46] LABS: Albumin 2.7 G/DL (3.4-5.0); Bilirubin,Total 0.4 MG/DL (0.2-1.0); Calcium 9.1 MG/DL (8.5-10.1); Osmolality,Calculated 284.8 MOS/KG (273-304); Potassium 4.2 MMOL/L (3.5-5.1)
[2018-11-26] MEDS ORDERED: SACUBITRIL/VALSARTAN 49-51 MG TABLET PO SCH (09:00)
[2018-11-26] MEDS: SPIRONOLACTONE 25 MG TABLET PO SCH (09:01)
[2018-11-26] MEDS: ISOSORBIDE MONONITRATE 60 MG TABLET PO SCH ×2 (09:01→21:21)
[2018-11-26] MEDS: LISINOPRIL 10 MG TABLET PO SCH (09:01)
[2018-11-26] MEDS: CARVEDILOL 6.25 MG TABLET PO SCH ×3 (09:01→17:53)
[2018-11-26] MEDS: FUROSEMIDE 40 MG TABLET PO SCH (09:02)
[2018-11-26] MEDS: APIXABAN 5 MG TABLET PO SCH ×2 (09:14→21:23)
[2018-11-26] MEDS: GABAPENTIN 100 MG CAPSULE PO SCH ×2 (09:14→21:21)
[2018-11-26] MEDS: ASPIRIN EC 81 MG TABLET PO SCH (09:14)
[2018-11-26] MEDS: COENZYME Q10 100 MG CAPSULE PO SCH (09:14)
[2018-11-26] MEDS: OMEGA 3 ACID ETHYL ESTERS 1 GM CAPSULE PO SCH (09:14)
[2018-11-26] MEDS: INSULIN REGULAR 100 UNIT/ML SUBCUT SCH ×4 (09:14→21:22)
[2018-11-26] MEDS: MULTIVITAMIN (CENTRUM) TABLET PO SCH (09:14)
[2018-11-26] MEDS ORDERED: NITROGLYCERIN SL 0.4 MG TABLET SL PRN (10:02)
[2018-11-26] MEDS ORDERED: ASPIRIN CHEW 81 MG TABLET PO ONE ×2 (10:02)
[2018-11-26] MEDS ORDERED: ALUM/MAG/SIMETH/LIDO VISC 1:1 30 ML BOTTLE PO ONE ×2 (10:09→10:30)
[2018-11-26] MEDS ORDERED: SUCRALFATE 1 GM/10 ML UDCUP ONE (10:10)
[2018-11-26] MEDS ORDERED: SUCRALFATE 1 GM/10 ML UDCUP PO ONE (10:30)
[2018-11-26] MEDS: PANTOPRAZOLE 40 MG TABLET PO SCH ×2 (12:36→21:20)
[2018-11-26] MEDS ORDERED: methylPREDNISolone SOD SUC 40 MG/1 ML VIAL IV SCH (21:00)
[2018-11-26] MEDS: MONTELUKAST 10 MG TABLET PO SCH (21:21)
[2018-11-26] MEDS: CHOLECALCIFEROL 1,000 UNIT TABLET PO SCH (21:21)
[2018-11-26] MEDS: SIMVASTATIN 10 MG TABLET PO SCH (21:21)
[2018-11-26] MEDS: LATANOPROST 0.005% OPH SOLN 2.5 ML BOTTLE BOTH EYES SCH (21:25)
[2018-11-27] MEDS: ALBUTEROL/IPRATROPIUM 3 ML NEB RESP TX SCH ×4 (01:37→19:21)
[2018-11-27 05:09] LABS: Basophils % 0.1 % (0.0-0.8); Hemoglobin 12.4 GM/DL (14.0-18.0); Immature Granulocytes % 0.8 %; Immature Granulocytes Absolute 0.16 #; Lymphocytes # 0.7 10*3/uL (1.4-4.0); Lymphocytes % 3.7 % (21.2-54.2); Mean Corpuscular HGB Conc 31.8 GM/DL (32-36); Mean Corpuscular Hemoglobin 28 PG (27-34); Mean Corpuscular Volume 86.9 FL (87-102); Mean Platelet Volume 12.8 FL (9.6-12.0); Monocytes # 0.6 10*3/uL (0.11-0.8); Monocytes % 3.2 % (1.7-12.7); Neutrophils # 17.6 10*3/uL (1.4-7.4); Neutrophils % 92.2 % (38.7-73.9); Platelet Count 270 T/CUMM (130-400); Red Blood Count 4.49 MC/CUMM (3.8-5.5); Red Cell Distribution Width 14.6 % (9.3-17.3)
[2018-11-27 05:33] LABS: Lymphocytes 3 % (20-55); Platelet Estimate Adequate; Segmented Neutrophils 92 % (50-85); Total Cells Counted 100
[2018-11-27 05:34] LABS: Hypochromasia 1+
[2018-11-27 05:42] LABS: Albumin 2.5 G/DL (3.4-5.0); Bilirubin,Total 1.2 MG/DL (0.2-1.0); Calcium 8.4 MG/DL (8.5-10.1); Osmolality,Calculated 288.8 MOS/KG (273-304); Potassium 4.5 MMOL/L (3.5-5.1); Total Protein 6.5 G/DL (6.4-8.3)
[2018-11-27] MEDS: MULTIVITAMIN (CENTRUM) TABLET PO SCH (09:24)
[2018-11-27] MEDS: predniSONE 20 MG TABLET PO SCH (09:24)
[2018-11-27] MEDS: APIXABAN 5 MG TABLET PO SCH ×2 (09:24→20:50)
[2018-11-27] MEDS: LISINOPRIL 10 MG TABLET PO SCH (09:24)
[2018-11-27] MEDS: GABAPENTIN 100 MG CAPSULE PO SCH ×2 (09:24→20:50)
[2018-11-27] MEDS: SPIRONOLACTONE 25 MG TABLET PO SCH (09:25)
[2018-11-27] MEDS: FUROSEMIDE 40 MG TABLET PO SCH (09:25)
[2018-11-27] MEDS: OMEGA 3 ACID ETHYL ESTERS 1 GM CAPSULE PO SCH (09:25)
[2018-11-27] MEDS: ASPIRIN EC 81 MG TABLET PO SCH (09:25)
[2018-11-27] MEDS: PANTOPRAZOLE 40 MG TABLET PO SCH ×2 (09:25→20:49)
[2018-11-27] MEDS: CARVEDILOL 6.25 MG TABLET PO SCH ×2 (09:25→16:47)
[2018-11-27] MEDS: ISOSORBIDE MONONITRATE 60 MG TABLET PO SCH ×2 (09:25→20:50)
[2018-11-27] MEDS: INSULIN REGULAR 100 UNIT/ML SUBCUT SCH ×4 (09:29→20:56)
[2018-11-27] MEDS: COENZYME Q10 100 MG CAPSULE PO SCH (09:29)
[2018-11-27] MEDS: CEFUROXIME 500 MG TABLET PO SCH ×2 (12:20→20:49)
[2018-11-27] MEDS: CHOLECALCIFEROL 1,000 UNIT TABLET PO SCH (20:49)
[2018-11-27] MEDS: SIMVASTATIN 10 MG TABLET PO SCH (20:49)
[2018-11-27] MEDS: MONTELUKAST 10 MG TABLET PO SCH (20:50)
[2018-11-27] MEDS: LATANOPROST 0.005% OPH SOLN 2.5 ML BOTTLE BOTH EYES SCH (20:57)
[2018-11-28] MEDS: ALBUTEROL/IPRATROPIUM 3 ML NEB RESP TX SCH ×4 (00:22→19:36)
[2018-11-28 04:16] LABS: Basophils % 0.1 % (0.0-0.8); Hematocrit 39.8 VOL% (42.0-52.0); Hemoglobin 12.4 GM/DL (14.0-18.0); Immature Granulocytes % 0.9 %; Immature Granulocytes Absolute 0.14 #; Lymphocytes # 0.9 10*3/uL (1.4-4.0); Lymphocytes % 5.5 % (21.2-54.2); Mean Corpuscular HGB Conc 31.2 GM/DL (32-36); Mean Corpuscular Hemoglobin 27 PG (27-34); Mean Corpuscular Volume 87.5 FL (87-102); Mean Platelet Volume 12.7 FL (9.6-12.0); Monocytes # 1.1 10*3/uL (0.11-0.8); Monocytes % 6.5 % (1.7-12.7); Neutrophils # 14.1 10*3/uL (1.4-7.4); Platelet Count 251 T/CUMM (130-400); Red Blood Count 4.55 MC/CUMM (3.8-5.5); Red Cell Distribution Width 14.5 % (9.3-17.3); White Blood Count 16.2 T/CUMM (4-12)
[2018-11-28 04:36] LABS: Alanine Aminotransferase 34 U/L (16-61); Albumin 2.4 G/DL (3.4-5.0); Alkaline Phosphatase 67 U/L (45-117); Aspartate Amino Transferase 23 U/L (0-37); Bilirubin,Total < 0.39 MG/DL (0.2-1.0); Blood Urea Nitrogen 40 MG/DL (7-18); Calcium 8.1 MG/DL (8.5-10.1); Glucose 193 MG/DL (74-106); Osmolality,Calculated 289.7 MOS/KG (273-304); Potassium 4.3 MMOL/L (3.5-5.1); Sodium 138 MMOL/L (136-145); Total Protein 6.3 G/DL (6.4-8.3)
[2018-11-28] MEDS: CARVEDILOL 6.25 MG TABLET PO SCH ×2 (08:36→17:34)
[2018-11-28] MEDS: GABAPENTIN 100 MG CAPSULE PO SCH ×2 (08:37→20:40)
[2018-11-28] MEDS: ISOSORBIDE MONONITRATE 60 MG TABLET PO SCH ×2 (08:37→20:40)
[2018-11-28] MEDS: LISINOPRIL 10 MG TABLET PO SCH (08:37)
[2018-11-28] MEDS: MULTIVITAMIN (CENTRUM) TABLET PO SCH (08:37)
[2018-11-28] MEDS: APIXABAN 5 MG TABLET PO SCH ×2 (08:38→20:40)
[2018-11-28] MEDS: OMEGA 3 ACID ETHYL ESTERS 1 GM CAPSULE PO SCH (08:38)
[2018-11-28] MEDS: CEFUROXIME 500 MG TABLET PO SCH ×2 (08:38→20:40)
[2018-11-28] MEDS: SPIRONOLACTONE 25 MG TABLET PO SCH (08:38)
[2018-11-28] MEDS: FUROSEMIDE 40 MG TABLET PO SCH (08:38)
[2018-11-28] MEDS: COENZYME Q10 100 MG CAPSULE PO SCH (08:38)
[2018-11-28] MEDS: INSULIN REGULAR 100 UNIT/ML SUBCUT SCH ×4 (08:38→20:50)
[2018-11-28] MEDS: PANTOPRAZOLE 40 MG TABLET PO SCH ×2 (08:38→20:39)
[2018-11-28] MEDS: predniSONE 20 MG TABLET PO SCH (08:38)
[2018-11-28] MEDS: ASPIRIN EC 81 MG TABLET PO SCH (08:38)
[2018-11-28] MEDS: SIMVASTATIN 10 MG TABLET PO SCH (20:40)
[2018-11-28] MEDS: MONTELUKAST 10 MG TABLET PO SCH (20:40)
[2018-11-28] MEDS: LATANOPROST 0.005% OPH SOLN 2.5 ML BOTTLE BOTH EYES SCH (20:40)
[2018-11-28] MEDS: CHOLECALCIFEROL 1,000 UNIT TABLET PO SCH (20:40)
[2018-11-29] MEDS: ALBUTEROL/IPRATROPIUM 3 ML NEB RESP TX SCH ×4 (00:26→20:25)
[2018-11-29] MEDS: ISOSORBIDE MONONITRATE 60 MG TABLET PO SCH ×2 (10:25→20:13)
[2018-11-29] MEDS: FUROSEMIDE 40 MG TABLET PO SCH (10:25)
[2018-11-29] MEDS: CEFUROXIME 500 MG TABLET PO SCH ×2 (10:25→20:14)
[2018-11-29] MEDS: MULTIVITAMIN (CENTRUM) TABLET PO SCH (10:25)
[2018-11-29] MEDS: GABAPENTIN 100 MG CAPSULE PO SCH ×2 (10:26→20:13)
[2018-11-29] MEDS: OMEGA 3 ACID ETHYL ESTERS 1 GM CAPSULE PO SCH (10:26)
[2018-11-29] MEDS: PANTOPRAZOLE 40 MG TABLET PO SCH ×2 (10:26→20:15)
[2018-11-29] MEDS: predniSONE 20 MG TABLET PO SCH (10:26)
[2018-11-29] MEDS: LISINOPRIL 10 MG TABLET PO SCH (10:26)
[2018-11-29] MEDS: ASPIRIN EC 81 MG TABLET PO SCH (10:27)
[2018-11-29] MEDS: SPIRONOLACTONE 25 MG TABLET PO SCH (10:27)
[2018-11-29] MEDS: CARVEDILOL 6.25 MG TABLET PO SCH ×2 (10:27→16:42)
[2018-11-29] MEDS: APIXABAN 5 MG TABLET PO SCH ×2 (10:27→20:15)
[2018-11-29] MEDS: COENZYME Q10 100 MG CAPSULE PO SCH (10:29)
[2018-11-29] MEDS: INSULIN REGULAR 100 UNIT/ML SUBCUT SCH ×3 (10:35→16:42)
[2018-11-29] MEDS: SIMVASTATIN 10 MG TABLET PO SCH (20:14)
[2018-11-29] MEDS: MONTELUKAST 10 MG TABLET PO SCH (20:15)
[2018-11-29] MEDS: CHOLECALCIFEROL 1,000 UNIT TABLET PO SCH (20:15)
[2018-11-30] MEDS: ALBUTEROL/IPRATROPIUM 3 ML NEB RESP TX SCH ×2 (00:14→07:23)
[2018-11-30] MEDS: INSULIN REGULAR 100 UNIT/ML SUBCUT SCH ×3 (00:36→12:23)
[2018-11-30] MEDS: LATANOPROST 0.005% OPH SOLN 2.5 ML BOTTLE BOTH EYES SCH (00:37)
[2018-11-30 05:18] LABS: Basophils % 0.3 % (0.0-0.8); Eosinophils % 0.2 % (0.00-10.9); Hematocrit 38.7 VOL% (42.0-52.0); Immature Granulocytes % 2.2 %; Immature Granulocytes Absolute 0.32 #; Lymphocytes # 1.1 10*3/uL (1.4-4.0); Lymphocytes % 7.7 % (21.2-54.2); Mean Corpuscular Hemoglobin 27 PG (27-34); Mean Corpuscular Volume 87.8 FL (87-102); Mean Platelet Volume 13.1 FL (9.6-12.0); Monocytes % 6.5 % (1.7-12.7); Neutrophils # 12.2 10*3/uL (1.4-7.4); Neutrophils % 83.1 % (38.7-73.9); Platelet Count 261 T/CUMM (130-400); Red Blood Count 4.41 MC/CUMM (3.8-5.5); Red Cell Distribution Width 14.3 % (9.3-17.3); White Blood Count 14.7 T/CUMM (4-12)
[2018-11-30 05:40] LABS: Calcium 7.7 MG/DL (8.5-10.1); Osmolality,Calculated 284.5 MOS/KG (273-304); Potassium 3.7 MMOL/L (3.5-5.1)
[2018-11-30] MEDS: ASPIRIN EC 81 MG TABLET PO SCH (08:11)
[2018-11-30] MEDS: CEFUROXIME 500 MG TABLET PO SCH (08:11)
[2018-11-30] MEDS: LISINOPRIL 10 MG TABLET PO SCH (08:12)
[2018-11-30] MEDS: CARVEDILOL 6.25 MG TABLET PO SCH (08:12)
[2018-11-30] MEDS: GABAPENTIN 100 MG CAPSULE PO SCH (08:12)
[2018-11-30] MEDS: ISOSORBIDE MONONITRATE 60 MG TABLET PO SCH (08:12)
[2018-11-30] MEDS: MULTIVITAMIN (CENTRUM) TABLET PO SCH (08:12)
[2018-11-30] MEDS: PANTOPRAZOLE 40 MG TABLET PO SCH (08:13)
[2018-11-30] MEDS: OMEGA 3 ACID ETHYL ESTERS 1 GM CAPSULE PO SCH (08:13)
[2018-11-30] MEDS: FUROSEMIDE 40 MG TABLET PO SCH (08:13)
[2018-11-30] MEDS: COENZYME Q10 100 MG CAPSULE PO SCH (08:13)
[2018-11-30] MEDS: SPIRONOLACTONE 25 MG TABLET PO SCH (08:13)
[2018-11-30] MEDS: APIXABAN 5 MG TABLET PO SCH (08:13)
[2018-11-30] MEDS ORDERED: traMADol 50 MG TABLET PO PRN (08:36)
[2018-11-30] MEDS ORDERED: predniSONE 20 MG TABLET PO SCH (09:00)
[2018-11-30 12:15] VITALS: BP 120/80
== END 2018-11-30 15:00 | disposition home health service (06) | DRG 292 ==
LOC: EDUNIT# → EDBD → N.ED 08:05 → N.EDINP 10:08 → N.2E 13:31
PROVIDERS: ADMIT Internal Medicine; ATTEND Internal Medicine